=== PATIENT | male | born 1980 | race Caucasian/White ===

== ENCOUNTER 2018-11-28 08:17 | Emergency (ER) | payer OTHER ==
[2018-11-28 08:26] VITALS: RESP 18
--- NOTE | 2018-11-28 08:37 | ED ---
URI HPI - General Chief Complaint: Upper Respiratory Infection Stated Complaint: running fever, flu Time Seen by Provider: 11/28/18 08:30 Source: patient, RN notes reviewed Mode of arrival: ambulatory Limitations: no limitations - History of Present Illness Initial Comments: 37-year-old male presents emergency Department chief complaint fever cough bodyaches. Patient states symptoms started on Wednesday. I did initially start with a sore throat which has resolved. States she's been taken Tylenol and Motrin. Denies any sick contacts denies any significant past medical history NO KNOWN DRUG ALLERGIES. Denies any nausea vomiting diarrhea constipation. Denies any current ear pain does admit to a productive cough. - Related Data Home Medications Medication Instructions Recorded Confirmed Acetaminophen Tab [Tylenol Tab] 650 mg PO Q4H PRN 11/28/18 11/28/18 Ibuprofen [Motrin] 800 mg PO Q6H PRN 11/28/18 11/28/18 Previous Rx's Medication Instructions Recorded Azithromycin [Zithromax Z-pack] 0 mg PO DIRECTED #1 pack 11/28/18 Allergies Allergy/AdvReac Type Severity Reaction Status Date / Time No Known Allergies Allergy Verified 11/28/18 08:40 Review of Systems ROS Statement: Those systems with pertinent positive or pertinent negative responses have been documented in the HPI. ROS Other: All systems not noted in ROS Statement are negative. Past Medical History Past Medical History: No Reported History History of Any Multi-Drug Resistant Organisms: None Reported Past Surgical History: Appendectomy Past Psychological History: No Psychological Hx Reported Smoking Status: Current every day smoker Past Alcohol Use History: None Reported Past Drug Use History: None Reported General Exam Limitations: no limitations General appearance: alert, in no apparent distress Head exam: Present: atraumatic, normocephalic, normal inspection Eye exam: Present: normal appearance, PERRL, EOMI. Absent: scleral icterus, conjunctival injection, periorbital swelling ENT exam: Present: normal exam, normal oropharynx, mucous membranes moist, TM's normal bilaterally Neck exam: Present: normal inspection, full ROM. Absent: tenderness, meningismus, lymphadenopathy Respiratory exam: Present: normal lung sounds bilaterally. Absent: respiratory distress, wheezes, rales, rhonchi, stridor Cardiovascular Exam: Present: regular rate, normal rhythm, normal heart sounds. Absent: systolic murmur, diastolic murmur, rubs, gallop, clicks Course Vital Signs 11/28/18 08:24 Temperature 98.7 F Pulse Rate 89 Respiratory 18 Rate Blood Pressure 117/65 O2 Sat by Pulse 95 Oximetry Medical Decision Making - Medical Decision Making 37-year-old male presented for cough congestion chest x-ray influence unremarkable. Patient will be discharged on zpak - Lab Data Lab Results 11/28/18 Range/Units 08:48 Influenza Type A RNA Not Detected (Not Detectd) Influenza Type B (PCR) Not Detected (Not Detectd) - Radiology Data Radiology results: report reviewed, image reviewed X-ray unremarkable Disposition Clinical Impression: Bronchitis Disposition: HOME SELF-CARE Condition: Stable Instructions (If sedation given, give patient instructions): Upper Respiratory Infection (ED) Additional Instructions: Please return to the Emergency Department if symptoms worsen or any other concerns. Prescriptions: Azithromycin [Zithromax Z-pack] 0 mg PO DIRECTED #1 pack Is patient prescribed a controlled substance at d/c from ED?: No Referrals: None,Stated [Primary Care Provider] - 1-2 days Time of Disposition: 10:09
--- NOTE | 2018-11-28 09:02 | XR ---
EXAMINATION TYPE: XR chest 2V DATE OF EXAM: 11/28/2018 COMPARISON: NONE HISTORY: Cough congestion and weakness. TECHNIQUE: Frontal and lateral views of the chest are obtained. FINDINGS: There is no focal air space opacity, pleural effusion, or pneumothorax seen. The cardiac silhouette size is within normal limits. The osseous structures are intact. IMPRESSION: No suspicious acute pulmonary process.
[2018-11-28 10:38] VITALS: BP 104/62; PULSE 78; TEMP 97.7
== END 2018-11-28 10:35 | disposition home or self-care (01) ==
LOC: EC 08:17
DX: J40 Bronchitis, not specified as acute or chronic (principal); F17.200 Nicotine dependence, unspecified, uncomplicated
CPT/HCPCS: 71046; 87502; 99283

== ENCOUNTER 2019-04-08 00:07 | Emergency (ER) | payer OTHER ==
--- NOTE | 2019-04-08 00:12 | ED ---
Overdose HPI - General Chief Complaint: Overdose Stated Complaint: Overdose Time Seen by Provider: 04/08/19 00:11 - History of Present Illness Initial Comments: Adams is a previously healthy 38-year-old male with a history of heroin abuse who reports he's been clean for approximately 6 months. Patient states that he is having some relationship issues was feeling upset today he reports that he used some IV heroin for the first time in 6 months patient was then found unresponsive. 911 was called. EMS reports that they arrived on scene to find the patient with decreased respiratory rate, he was cyanotic with oxygen saturat ions in the 50s. Patient was given intranasal Narcan and began to wake up. Upon arrival emergency department patient is awake alert oriented with no acute complaints. He admits to using IV heroin. He denies other he vacations. He denies any intention of harming himself. He expresses regret remorse and embarrassment. - Related Data Home Medications Medication Instructions Recorded Confirmed Acetaminophen Tab [Tylenol Tab] 650 mg PO Q4H PRN 11/28/18 11/28/18 Ibuprofen [Motrin] 800 mg PO Q6H PRN 11/28/18 11/28/18 Previous Rx's Medication Instructions Recorded Azithromycin [Zithromax Z-pack] 0 mg PO DIRECTED #1 pack 11/28/18 Allergies Allergy/AdvReac Type Severity Reaction Status Date / Time No Known Allergies Allergy Verified 04/08/19 00:24 Review of Systems ROS Statement: Those systems with pertinent positive or pertinent negative responses have been documented in the HPI. ROS Other: All systems not noted in ROS Statement are negative. Past Medical History Past Medical History: No Reported History History of Any Multi-Drug Resistant Organisms: None Reported Past Surgical History: Appendectomy Past Psychological History: No Psychological Hx Reported Smoking Status: Current every day smoker Past Alcohol Use History: None Reported Past Drug Use History: None Reported General Exam - General Exam Comments Initial Comments: Physical Exam GENERAL: Patient is well-developed and well-nourished. Patient is nontoxic and well- hydrated and is in no distress. HENT: Normocephalic, Atraumatic. EYES: PERRL, EOMI PULMONARY: Unlabored respirations. No audible rales rhonchi or wheezing was noted. CARDIOVASCULAR: There is a regular rate and rhythm without any murmurs gallops or rubs. ABDOMEN: Soft and nontender with normal bowel sounds. SKIN: Skin is clear with no lesions or rashes and otherwise unremarkable. : Deferred NEUROLOGIC: Patient is alert and oriented x3. Moving all extremities spontaneously MUSCULOSKELETAL: Normal extremities with adequate strength and full range of motion. No lower extremity swelling or edema. No calf tenderness. PSYCHIATRIC: Normal psychiatric evaluation Course Vital Signs 04/08/19 00:09 Temperature 97.8 F Pulse Rate 83 Respiratory 19 Rate Blood Pressure 162/84 O2 Sat by Pulse 95 Oximetry - Reevaluation(s) Reevaluation #1: ambulating around the emergency department in no distress at this time 04/08/19 01:18 Medical Decision Making - Medical Decision Making Patient was seen and evaluated history is obtained from patient and EMS that side patient with an apparent accidental heroin overdose after 6 months of being clean neck slight patient received intranasal Narcan is now awake alert and oriented KG was obtained to assess for any prolonged QT excited EKG obtained at 12:20 AM, rate is 86 rhythm is sinus at normal axis, there are normal intervals, MN 154, QRS 110, QTC is [address] elevations or depressions no evidence of acute ischemia or infarction Patient with some nausea after receiving Narcan, Zofran was given Patient ambulating around the department, drinking water, no signs of sedation or respiratory depression. contacted a friend who will be able to pick him up, patient discharged at 1:45 AM. Disposition Clinical Impression: Accidental heroin overdose Disposition: HOME SELF-CARE Condition: Stable Instructions (If sedation given, give patient instructions): Narcotic Use Disorder (ED) Is patient prescribed a controlled substance at d/c from ED?: No Referrals: None,Stated [Primary Care Provider] - 1-2 days
[2019-04-08 00:24] VITALS: BP 162/84; PULSE 83; RESP 19; TEMP 97.8
== END 2019-04-08 01:33 | disposition home or self-care (01) ==
LOC: EC 00:07
DX: T40.1X1A Poisoning by heroin, accidental (unintentional), initial encounter (principal); R11.0 Nausea; F17.200 Nicotine dependence, unspecified, uncomplicated
CPT/HCPCS: 93005; 99284

== ENCOUNTER 2019-04-10 19:13 | Emergency (ER) | payer OTHER ==
[2019-04-10] MEDS ORDERED: DIPH,PERTUS(ACELL)TETVAC-LF 0.5 ML VIAL IM ONE (20:40)
[2019-04-10] MEDS ORDERED: LIDOCAINE 1% INJ 10MG/ML (20 ML MDV) SQ ONE (20:41)
[2019-04-10] MEDS ORDERED: MORPHINE SULFATE 4 MG/ML SYRINGE IVP STA (20:41)
--- NOTE | 2019-04-10 20:59 | XR ---
EXAMINATION TYPE: XR foot complete LT DATE OF EXAM: 04/10/2019 COMPARISON: NONE HISTORY: 38-year-old male pain after beam fell on foot. TECHNIQUE: 3 views FINDINGS: Nondisplaced transverse fracture second metatarsal midshaft. There is a comminuted, nondisplaced frac ture of the first proximal phalanx. There may be proximal extension into the TMT joint. Marked midfoo t soft tissue swelling. No midfoot malalignment identified. IMPRESSION: 1. Comminuted, nondisplaced fracture of the first metatarsal shaft. There may be fracture extension p roximally to the level of the TMT joint. 2. Nondisplaced transverse fracture mid shaft of the second metatarsal. 3. Pronounced soft tissue swelling.
--- NOTE | 2019-04-10 22:54 | ED ---
Lower Extremity Injury HPI - General Chief Complaint: Extremity Injury, Lower Stated Complaint: foot injury [facility] Time Seen by Provider: 04/10/19 20:25 Source: family Mode of arrival: wheelchair Limitations: no limitations - History of Present Illness Initial Comments: 38-year-old male with history of heroin abuse presenting today for chief complaint of crush injury to the left foot. Patient states he was at work when he dropped a circular cylinder on the left foot he weighed between 100-200 pounds. He states he had a small area of the upper treated he states there is a puncture in the top of his foot. Patient states her significant swelling pain is unable to weight-bear. Patient was transferred to the hospital for evaluation. Patient denies fall trauma to head or neck or any other areas of injury. He denies any ankle pain. She denies any loss of sensation or pallor of the extremity. Patient states he is able to wiggle all 5 toes. Remaining ROS (-). - Related Data Home Medications Medication Instructions Recorded Confirmed Acetaminophen Tab [Tylenol Tab] 650 mg PO Q4H PRN 11/28/18 11/28/18 Ibuprofen [Motrin] 800 mg PO Q6H PRN 11/28/18 11/28/18 Previous Rx's Medication Instructions Recorded Azithromycin [Zithromax Z-pack] 0 mg PO DIRECTED #1 pack 11/28/18 HYDROcodone/APAP 7.5-325MG [[place] 1 tab PO Q6HR PRN 3 Days #12 tab 04/11/19 7.5-325] Allergies Allergy/AdvReac Type Severity Reaction Status Date / Time No Known Allergies Allergy Verified 04/08/19 00:24 Review of Systems ROS Statement: Those systems with pertinent positive or pertinent negative responses have been documented in the HPI. ROS Other: All systems not noted in ROS Statement are negative. Past Medical History Past Medical History: No Reported History History of Any Multi-Drug Resistant Organisms: None Reported Past Surgical History: Appendectomy Past Psychological History: No Psychological Hx Reported Smoking Status: Current every day smoker Past Alcohol Use History: None Reported Past Drug Use History: None Reported General Exam - General Exam Comments Initial Comments: General: The patient is awake and alert, in no distress, and does not appear acutely ill. Eye: Pupils are equal, round and reactive to light, extra-ocular movements are intact. No nystagmus. There is normal conjunctiva bilaterally. No signs of icterus. Ears, nose, mouth and throat: There are moist mucous membranes and no oral lesions. Neck: The neck is supple, there is no tenderness or JVD. Cardiovascular: There is a regular rate and rhythm. No murmur, rub or gallop is appreciated. Respiratory: Lungs are clear to auscultation, respirations are non-labored, breath sounds are equal. No wheezes, stridor, rales, or rhonchi. Musculoskeletal: Normal ROM at the ankles knees hips bilaterally patient is unable to plantar dorsiflex at the left foot secondary to pain however there is no evidence of foot drop. Patient is able to wiggle the digits of the left foot. He is tenderness to plantar aspect of left foot. Patient intact both proximal distal to injury site Neurological: A&O x 3. CN II-XII intact, There are no obvious motor or sensory deficits. Coordination appears grossly intact. Speech is normal. Skin: Skin is warm and dry and no rashes or lesions are noted. Bruising of the plantar aspect of foot. Significant soft tissue swelling of the left dorsal surface. Compartments are compressible. No pain out of proportion. There is a 1 cm puncture of the central area of foot. Bleeding controlled. +2 dorsalis pedis pulses equal person bilaterally E refill 3 seconds bilaterally. Equal. Psychiatric: Cooperative, appropriate mood & affect, normal judgment. Limitations: no limitations Course Vital Signs 04/10/19 20:20 Temperature 98.3 F Pulse Rate 65 Respiratory 18 Rate Blood Pressure 119/73 O2 Sat by Pulse 100 Oximetry - Reevaluation(s) Reevaluation #1: Attending Dr. Foreman spoke with Eliane Kee oil and gas exploration technician vascular surgeon for Dr Quinton victor. We discussed the area of penetrating/blunt trauma, with possibility of dorsalis pedis arterial injury--although suspicion low due to lack of bleeding/color of blood, distal vascular exam. She recommended closure of wound with pressure dressing 04/10/19 23:14 Reevaluation #2: Spoke with Dr. Lyons regarding imaging studies, he recommended posterior mold, CT of foot, NWB instruction, outpatient f/u in office this week. 04/10/19 23:38 Medical Decision Making - Medical Decision Making 38yo male presenting for left foot crush injury of left foot. Compartments compressible puncture present upon dorsal aspect of foot. Vascular was consulted Dr. Kee who spoke with my attending Dr. Foreman who did evaluate patient in person. Vascular was consulted given area of injury, although no overt sign of arterial injury. Pt neurovascularly intact. They recommended closure of superficial wound and a compression dressing. Imaging studies revealed a comminuted non-displaced fracture of the first metatarsal shaft, there appears to be some extension proximally into the TMs T joint. There is nonspecific displaced transverse fracture mid shaft of the second metatarsal. Pronounced soft tissue swelling there is no mid foot malalignment identified. I discussed findings with oncall orthopedic surgeon Dr. Lyons. He recommended CT and outpatient office f/u. Patient CT revealed. Patient placed in posterior mold. Tetanus updated. Patient initiated on keflex for infection ppx given puncture wound. Patient discharge with NWB instruction, orthopedic f/u, f/u in 7 days for suture removal and return parameters as discussed. Patient verbalized the importance of timely f/u. Disposition Clinical Impression: Crush injury of left foot, Puncture wound, Multiple fractures of foot Disposition: HOME SELF-CARE Condition: Good Instructions (If sedation given, give patient instructions): Foot Fracture in Adults (ED) Additional Instructions: Please use medication as discussed. Please follow-up with family doctor in the next 2 days, and orthopedic surgery within next 1-3 days (IMPORTANT). DO NOT WEIGHT BEAR. Please return to emergency room if the symptoms increase or worsen or for any other concerns. Prescriptions: HYDROcodone/APAP 7.5-325MG [[place] 7.5-325] 1 tab PO Q6HR PRN 3 Days #12 tab PRN Reason: Severe Pain Is patient prescribed a controlled substance at d/c from ED?: No Referrals: None,Stated [Primary Care Provider] - 1-2 days Maged Lyons MD [Medical Doctor] - 1-2 days Time of Disposition: 00:05
[2019-04-10] MEDS ORDERED: HYDROmorphone 0.5 MG/0.5 ML SYRINGE IM STA (23:05)
[2019-04-10] MEDS ORDERED: CEPHALEXIN 500MG STARTER PACK 4 CAP BTL PO STA (23:47)
--- NOTE | 2019-04-11 00:04 | CT ---
EXAM: CT Left Lower Extremity Without Intravenous Contrast, Foot CLINICAL HISTORY: : Pain TECHNIQUE: Axial computed tomography images of the left foot without intravenous contrast. CTDI is 4.2 mGy and DLP is 138.8 mGy-cm. This CT exam was performed using one or more of the following dose reduction techniques: automated exposure control, adjustment of the mA and/or kV according to patient size, and/or use of iterative reconstruction technique. COMPARISON: No relevant prior studies available. FINDINGS: Bones/joints: Longitudinal Fracture of the first metatarsal bone which is minimally displaced. This does not extend into the articular surface of approximately or distally. The soft tissue swelling noted. IMPRESSION: Minimally displaced fracture the first metatarsal left foot with no extension into the articular surface
[2019-04-11] MEDS ORDERED: MORPHINE SULFATE 4 MG/ML SYRINGE IM STA (00:09)
[2019-04-11 00:25] VITALS: BP 130/70; PULSE 71; RESP 17; TEMP 98.9
--- NOTE | 2019-04-13 03:58 | CDI ---
Documentation Clarification OP Dear Sulma BRICENO, PAC Please provide complete foot puncture wound repair note. Thank you, Jenni Luna Performance Specialist If you have any questions, please contact Refrigeration Insulator at [phone] [facility]
== END 2019-04-11 00:24 | disposition home or self-care (01) ==
LOC: EC 19:13
DX: S92.315A Nondisplaced fracture of first metatarsal bone, left foot, initial encounter for closed fracture (principal); S92.322A Displaced fracture of second metatarsal bone, left foot, initial encounter for closed fracture; S91.332A Puncture wound without foreign body, left foot, initial encounter; F17.200 Nicotine dependence, unspecified, uncomplicated; Z53.29 Procedure and treatment not carried out because of patient's decision for other reasons; W20.8XXA Other cause of strike by thrown, projected or falling object, initial encounter; Y92.69 Other specified industrial and construction area as the place of occurrence of the external cause; Y99.0 Civilian activity done for income or pay
CPT/HCPCS: 99284; 29515; 12001; 96374; 96372 ×2; 73630; 73700; J2270 ×2; J2001; J1170

== ENCOUNTER 2019-08-03 19:11 | Inpatient (IN) | payer MEDICAID, OTHER ==
[2019-08-03 20:08] LABS: Amphetamine Screen,Urine Not Detected (NotDetected); Barbiturate Screen,Urine Not Detected (NotDetected); Benzodiazepines Screen,Urine Not Detected (NotDetected); Cocaine Screen,Urine Not Detected (NotDetected); Methadone Screen, Urine Not Detected (NotDetected); Opiate Screen,Urine Not Detected (NotDetected); Oxycodone Screen, Urine Not Detected (NotDetected); Phencyclidine Screen,Urine Not Detected (NotDetected); Tricyclic Antidepressant,Urine Not Detected (NotDetected); Urn Cannabinoid Scrn Not Detected (NotDetected)
--- NOTE | 2019-08-03 21:10 | ED ---
Psych HPI - General Chief Complaint: Psychiatric Symptoms Stated Complaint: mental health Time Seen by Provider: 08/03/19 19:42 Source: patient, RN notes reviewed Mode of arrival: ambulatory - History of Present Illness Initial Comments: Is a 38-year-old male history depression who presents today with complaints of feeling depressed he is suicidal without plan. He believes it may be his medications 6 to make it worse is feeling depressed for last 3 weeks that markedly increased over last several days. He states he has a plan to take potassium chloride and injected. He denies any drugs or alcohol he states he is been sober for a period time now. No other current modifying factors MD Complaint: suicidal ideation, feels depressed - Related Data Home Medications Medication Instructions Recorded Confirmed Vivitrol Injection 1 injection IM QMONTH 08/03/19 08/03/19 Allergies Allergy/AdvReac Type Severity Reaction Status Date / Time No Known Allergies Allergy Verified 08/03/19 20:10 Review of Systems ROS Statement: Those systems with pertinent positive or pertinent negative responses have been documented in the HPI. ROS Other: All systems not noted in ROS Statement are negative. Past Medical History Past Medical History: No Reported History History of Any Multi-Drug Resistant Organisms: None Reported Past Surgical History: Appendectomy Past Psychological History: No Psychological Hx Reported Smoking Status: Former smoker Past Alcohol Use History: None Reported Past Drug Use History: Opiates General Exam - General Exam Comments Initial Comments: This is a well-developed well-nourished awake alert oriented 3 male Limitations: no limitations General appearance: alert, anxious Head exam: Present: atraumatic, normocephalic, normal inspection Eye exam: Present: normal appearance, PERRL, EOMI. Absent: scleral icterus, conjunctival injection, periorbital swelling ENT exam: Present: normal exam, mucous membranes moist Neck exam: Present: normal inspection. Absent: tenderness, meningismus, lymphadenopathy Respiratory exam: Present: normal lung sounds bilaterally. Absent: respiratory distress, wheezes, rales, rhonchi, stridor Cardiovascular Exam: Present: regular rate, normal rhythm, normal heart sounds. Absent: systolic murmur, diastolic murmur, rubs, gallop, clicks GI/Abdominal exam: Present: soft, normal bowel sounds. Absent: distended, tenderness, guarding, rebound, rigid Extremities exam: Present: normal inspection, full ROM, normal capillary refill. Absent: tenderness, pedal edema, joint swelling, calf tenderness Back exam: Present: normal inspection Neurological exam: Present: alert, oriented X3, CN II-XII intact Psychiatric exam: Present: depressed, suicidal ideation Skin exam: Present: warm, dry, intact, normal color. Absent: rash Course Vital Signs 08/03/19 19:31 Temperature 97.9 F Pulse Rate 93 Respiratory 20 Rate Blood Pressure 125/73 O2 Sat by Pulse 96 Oximetry Medical Decision Making - Medical Decision Making The patient was evaluated by psychiatric service and will be admitted for inpatient treatment of depression and suicidal ideation. - Lab Data Lab Results 08/03/19 Range/Units 19:52 Urine Opiates Screen Not Detected (NotDetected) Ur Oxycodone Screen Not Detected (NotDetected) Urine Methadone Screen Not Detected (NotDetected) Ur Propoxyphene Screen Not Detected (NotDetected) Ur Barbiturates Screen Not Detected (NotDetected) U Tricyclic Antidepress Not Detected (NotDetected) Ur Phencyclidine Scrn Not Detected (NotDetected) Ur Amphetamines Screen Not Detected (NotDetected) U Methamphetamines Scrn Not Detected (NotDetected) U Benzodiazepines Scrn Not Detected (NotDetected) Urine Cocaine Screen Not Detected (NotDetected) U Marijuana (THC) Screen Not Detected (NotDetected) Disposition Clinical Impression: Depression, Suicidal ideation Disposition: TRANSFER TO PSYCH HOSP/UNIT Condition: Stable Referrals: None,Stated [Primary Care Provider] - 1-2 days
[2019-08-03] MEDS ORDERED: ZIPRASIDONE 20 MG VIAL IM PRN (22:33)
[2019-08-03] MEDS ORDERED: MAG HYDROX/AL HYDROX/SIMETH 30 ML CUP PO PRN (22:33)
[2019-08-03] MEDS ORDERED: MAGNESIUM HYDROXIDE 2,400 MG/10 ML CUP PO PRN (22:33)
[2019-08-03] MEDS ORDERED: ACETAMINOPHEN TAB 325 MG TAB PO PRN (22:33)
--- NOTE | 2019-08-03 23:22 | P.MDCNMH ---
History of Present Illness H&P Date: 08/03/19 Chief Complaint: medical evaluation 38-year-old malesignificant past medical history Patient reports addiction to narcotics and smoking cigarettes however he quit both around a month ago since then he's been feeling very depressed and suicidal today he called helpline due to suicidal thoughts he was planning on crushing potassium pills and injecting it in an attempt of and refill potassium injection. He never tried anything like this before. He denies any history of mental health problems. He reports that addiction runs in his family. At this point he denies any chest pain trouble breathing fevers chills headache nausea vomiting abdominal pain or any GI bleeding denies any focal neurologic deficits Review of Systems Pertinent positives as noted in HPI. All other systems were reviewed and are negative Past Medical History Past Medical History: No Reported History History of Any Multi-Drug Resistant Organisms: None Reported Past Surgical History: Appendectomy Past Psychological History: No Psychological Hx Reported Smoking Status: Former smoker Past Alcohol Use History: None Reported Past Drug Use History: Opiates Medications and Allergies Home Medications Medication Instructions Recorded Confirmed Type Vivitrol Injection 1 injection IM QMONTH 08/03/19 08/03/19 History Allergies Allergy/AdvReac Type Severity Reaction Status Date / Time No Known Allergies Allergy Verified 08/03/19 20:10 Physical Exam Vitals: Vital Signs Temp Pulse Resp BP Pulse Ox 08/03/19 19:31 97.9 F 93 20 125/73 96 Intake and Output 08/03/19 08/03/19 08/04/19 14:59 22:59 06:59 Other: Weight 90.718 kg mConstitutional: No acute distress, conversant, pleasant Eyes: Anicteric sclerae, moist conjunctiva, no lid-lag Pupils equal round reactive to light ENMT: NC/AT Oropharynx clear, no erythema, exudates Neck: Supple, FROM, no masses, or JVD No carotid bruits No thyromegaly Lungs: Clear to auscultation Clear to percussion Normal respiratory effort, no accessory muscle use Cardiovascular: Heart regular in rate and rhythm, No murmurs, gallops, or rubs No peripheral edema Abdominal: Soft Nontender, no guarding, rebound or rigidity Abdomen moving with respiration Normoactive bowel sounds No hepatomegaly, No splenomegaly No palpable mass No abdominal wall hernia noted Skin: Normal temperature, tone, texture, turgor No induration No subcutaneous nodules No rash, lesions No ulcers Extremities: No digital cyanosis No clubbing Pedal pulses intact and symmetrical Radial pulses intact and symmetrical No calf tenderness Psychiatric: Alert and oriented to person, place and time depressede affect poor judgement Neuro Muscles Strength 5/5 in all 4 extremities Sensation to light touch grossly present throughout Cranial nerves II-XII grossly intact No focal sensory deficits Lymphatics: no palpable cervical or supraclavicular , or inguinal lymph nodes Cranial Nerve Examination - Cranial Nerves Cranial Nerve II- Optic: Intact Cranial Nerve III- Oculomotor: Intact Cranial Nerve IV- Trochlear: Intact Cranial Nerve V- Trigeminal: Intact Cranial Nerve - Abducens: Intact Cranial Nerve VII- Facial: Intact Cranial Nerve VIII- Auditory: Intact Cranial Nerve IX- Glossopharyngeal: Intact Cranial Nerve X- Vagus: Intact Cranial Nerve XI- Accessory: Intact Cranial Nerve XII- Hypoglossal: Intact Assessment and Plan Assessment: 38-year-old malewith a past medical history presented due to depression and suicidal ideation medicine consulted for medical management currently denies any active medical issues Plan: depression and suicidal ideation Management per psych Recently quit tobacco smoking in narcotics Patient counseled to quit drug of abuse Low risk for DVT patient ambulatory Follow-up labs Thank you for allowing us to participate in the care of this patient. We will follow peripherally. Do not hesitate to contact us with questions. Someone can be reached from the [facility] hospitalist group at all hours of the day at [phone].
[2019-08-04 08:55] LABS: Basophils % (A) 1 %; Eosinophils # (A) 0.1 k/uL (0-0.7); Eosinophils % (A) 2 %; HGB 14.5 gm/dL (13.0-17.5); Lymphocytes # (A) 2.2 k/uL (1.0-4.8); Lymphocytes % (A) 31 %; MCH 30.9 pg (25.0-35.0); MCHC 33.7 g/dL (31.0-37.0); MCV 91.8 fL (80.0-100.0); Mean Platelet Volume 7.8; Monocytes # (A) 0.3 k/uL (0-1.0); Monocytes % (A) 4 %; Neutrophils # (A) 4.4 k/uL (1.3-7.7); Neutrophils % (A) 62 %; Platelet Count 150 k/uL (150-450); RBC 4.68 m/uL (4.30-5.90); RDW 12.6 % (11.5-15.5); WBC 7.2 k/uL (3.8-10.6)
[2019-08-04 09:00] LABS: ALT 75 U/L (21-72); AST 44 U/L (17-59); African American GFR (CKD) >90 (>60 ml/min/1.73 sqM); Albumin 4.5 g/dL (3.5-5.0); Alkaline Phosphatase 71 U/L (38-126); Anion Gap 10 mmol/L; Blood Urea Nitrogen 14 mg/dL (9-20); Calcium 9.6 mg/dL (8.4-10.2); Carbon Dioxide 26 mmol/L (22-30); Chloride 106 mmol/L (98-107); Cholesterol 156 mg/dL (<200); Glucose 85 mg/dL (74-99); HDL Cholesterol 51 mg/dL (40-60); LDL Cholesterol,Calculated 93 mg/dL (0-99); Potassium 4.5 mmol/L (3.5-5.1); Sodium 142 mmol/L (137-145); Total Bilirubin 0.7 mg/dL (0.2-1.3); Total Protein 7.7 g/dL (6.3-8.2); Triglycerides 59 mg/dL (<150)
[2019-08-04] MEDS: SERTRALINE 50 MG TAB PO SCH (14:21)
--- NOTE | 2019-08-04 14:37 | P.HP ---
Psychiatric H&P - . H&P Date: 08/04/19 History & Physical: Allergies Allergy/AdvReac Type Severity Reaction Status Date / Time No Known Allergies Allergy Verified 08/03/19 20:10 Vital Signs Temp 97.9 F 08/04/19 06:22 Pulse 55 L 08/04/19 06:22 Resp 14 08/04/19 06:22 BP 113/53 08/04/19 06:22 Pulse Ox 96 08/03/19 19:31 Intake & Output 08/03/19 08/04/19 08/04/19 18:59 06:59 18:59 Weight 90.718 kg 90.71 kg Laboratory Last Values WBC 7.2 k/uL (3.8-10.6) 08/04/19 07:47 RBC 4.68 m/uL (4.30-5.90) 08/04/19 07:47 Hgb 14.5 gm/dL (13.0-17.5) 08/04/19 07:47 Hct 43.0 % (39.0-53.0) 08/04/19 07:47 MCV 91.8 fL (80.0-100.0) 08/04/19 07:47 MCH 30.9 pg (25.0-35.0) 08/04/19 07:47 MCHC 33.7 g/dL (31.0-37.0) 08/04/19 07:47 RDW 12.6 % (11.5-15.5) 08/04/19 07:47 Plt Count 150 k/uL (150-450) 08/04/19 07:47 Neutrophils % 62 % 08/04/19 07:47 Lymphocytes % 31 % 08/04/19 07:47 Monocytes % 4 % 08/04/19 07:47 Eosinophils % 2 % 08/04/19 07:47 Basophils % 1 % 08/04/19 07:47 Neutrophils # 4.4 k/uL (1.3-7.7) 08/04/19 07:47 Lymphocytes # 2.2 k/uL (1.0-4.8) 08/04/19 07:47 Monocytes # 0.3 k/uL (0-1.0) 08/04/19 07:47 Eosinophils # 0.1 k/uL (0-0.7) 08/04/19 07:47 Basophils # 0.0 k/uL (0-0.2) 08/04/19 07:47 Sodium 142 mmol/L (137-145) 08/04/19 07:47 Potassium 4.5 mmol/L (3.5-5.1) 08/04/19 07:47 Chloride 106 mmol/L (98-107) 08/04/19 07:47 Carbon Dioxide 26 mmol/L (22-30) 08/04/19 07:47 Anion Gap 10 mmol/L 08/04/19 07:47 BUN 14 mg/dL (9-20) 08/04/19 07:47 Creatinine 1.03 mg/dL (0.66-1.25) 08/04/19 07:47 Est GFR (CKD-EPI)AfAm >90 (>60 ml/min/1.73 sqM) 08/04/19 07:47 Est GFR (CKD-EPI)NonAf >90 (>60 ml/min/1.73 sqM) 08/04/19 07:47 Glucose 85 mg/dL (74-99) 08/04/19 07:47 Calcium 9.6 mg/dL (8.4-10.2) 08/04/19 07:47 Total Bilirubin 0.7 mg/dL (0.2-1.3) 08/04/19 07:47 AST 44 U/L (17-59) 08/04/19 07:47 ALT 75 U/L (21-72) H 08/04/19 07:47 Alkaline Phosphatase 71 U/L (38-126) 08/04/19 07:47 Total Protein 7.7 g/dL (6.3-8.2) 08/04/19 07:47 Albumin 4.5 g/dL (3.5-5.0) 08/04/19 07:47 Triglycerides 59 mg/dL (<150) 08/04/19 07:47 Cholesterol 156 mg/dL (<200) 08/04/19 07:47 LDL Cholesterol, Calc 93 mg/dL (0-99) 08/04/19 07:47 HDL Cholesterol 51 mg/dL (40-60) 08/04/19 07:47 TSH 2.270 mIU/L (0.465-4.680) 08/04/19 07:47 Urine Opiates Screen Not Detected (NotDetected) 08/03/19 19:52 Ur Oxycodone Screen Not Detected (NotDetected) 08/03/19 19:52 Urine Methadone Screen Not Detected (NotDetected) 08/03/19 19:52 Ur Propoxyphene Screen Not Detected (NotDetected) 08/03/19 19:52 Ur Barbiturates Screen Not Detected (NotDetected) 08/03/19 19:52 U Tricyclic Antidepress Not Detected (NotDetected) 08/03/19 19:52 Ur Phencyclidine Scrn Not Detected (NotDetected) 10 19:52 Ur Amphetamines Screen Not Detected (NotDetected) 08/03/19 19:52 U Methamphetamines Scrn Not Detected (NotDetected) 08/03/19 19:52 U Benzodiazepines Scrn Not Detected (NotDetected) 08/03/19 19:52 Urine Cocaine Screen Not Detected (NotDetected) 08/03/19 19:52 U Marijuana (THC) Screen Not Detected (NotDetected) 08/03/19 19:52 08/04/19 14:26 IDENTIFYING DATA: Patient is a 38-year-old male with a history of opiate use disorder currently living in a [facility] [place] is single and has 2 daughters and worked as a personal injury law specialist HPI: Patient presented to the hospital last night with his girlfriend with a c omplaint of increase in his depression, feeling hopeless and isolating himself. Patient also endorsed suicidal ideations with an intent/plan to get potassium chloride in the medicine cabinet to end his life. Patient claims that for the past 3-4 weeks he has been feeling "off" and states that his depression has been progressing. He states that he has a history of mild depression and anxiety however states that in the past month it has been much worse. Patient claims that he believes it is the naltrexone injection which she received about a month ago which is causing this. He admits to having poor energy and feels like he does not want to get out of bed at times. Patient admits to anxiety and poor sleep. Patient also spoke about feeling guilty and having shame as he cheated on his girlfriend last weekend. Patient denies any recreational drug use recently and states that he is 37 days sober. Patient had a negative UDS prior to admission. Patient denies any suicidal or homicidal ideations intent or plan. At this time patient denies any auditory or visual hallucinations. Patient denies any flight of ideas racing thoughts and increased in goal directed behavior. Patient admitted to using heroin on and off for several years using approximately 1 g per day IV and now has been sober for 37 days. Patient claims that he also used to use alcohol however has been sober for several months. Patient denies any other recreational drug use and admits to quitting smoking approximately 3 weeks ago. PAST PSYCHIATRIC HISTORY: Patient states that he has a history of mild depression/anxiety for several years and history of polysubstance abuse including heroin and alcohol. He denies being on any psychiatric medications in the past and denies any outpatient psychiatric follow-up. Patient did state that he was seeing a therapist at [facility] weekly however has stopped. Patient denied any previous suicide attempts and denied any previous psychiatric hospitalizations. PMH:denies ALLERGIES: as per EMR CHEMICAL DEPENDENCY HISTORY: as per HPI FAMILY PSYCHIATRIC/SUBSTANCE USE HISTORY: States that his father is a recovering alcoholic and his 2 grandparents both abused alcohol. SOCIAL HISTORY: He states that he was born and raised in [facility] and recently moved up to the [facility] to be in rehab and sober house. Patient is currently living at [facility] for the past 2 days. Patient is single and has 2 daughters that live with his parents. Patient has an associates degree in business and worked as a personal injury law specialist. MENTAL STATUS EXAM: General Appearance: Patient appears to be stated age is well-built, alert, and cooperative. Behavior: Patient is calmly seated without any agitated behavior. Speech: Patient's speech is fluent and nonpressured. Soft tone Mood/Affect: Patient reports their mood is depressed, affect is congruent and constricted. Suicidality/Homicidality: Patient denies having any suicidal or homicidal ideation intent or plan. Perceptions: Patient denies any auditory or visual hallucinations. Though content/process: There is no evidence of any delusional thought content and thought process is linear and goal-directed. Memory and concentration: AOX3, grossly intact for the purposes of this session. Can spell "WORLD" backwards Judgment and insight: poor/impulsive STRENGTHS/WEAKNESSES: strength is that he is resilient, weaknesses that patient is impulsive and has poor insight. INTELLECT: average IMPRESSIONS: Major depressive disorder Anxiety disorder Opiate use disorder, currently in early remission. PLAN: -Patient is admitted under voluntary status to MHU for stabilization of psychiatric symptoms and safety. Patient signed adult voluntary form and medication consent and is placed in patient's chart. -Medications : Will start patient on Zoloft 50 mg daily for mood/anxiety. We'll also start patient on melatonin 5 mg daily at bedtime for sleep. Vistaril 25 mg every 6 hours when necessary for anxiety. -Geodon PRN for agitation/aggression -Patient was informed of the risks, benefits and side effects of the medication and patient verbally consented to taking the medications. Patient signed med consent form and was placed in chart. -NRT -not needed as patient does not smoke. -SW on board for discharge planning. Patient will likely be discharged back to [facility] when psychiatrically stable.
[2019-08-04 18:04] LABS: Hemoglobin A1C 5.2 % (4.0-6.0)
[2019-08-04] MEDS: MELATONIN 5 MG TABLET PO SCH (21:00)
[2019-08-05] MEDS: SERTRALINE 50 MG TAB PO SCH (07:44)
[2019-08-05 14:48] VITALS: BMI 27.6
[2019-08-05] MEDS: hydrOXYzine PAMOATE 25 MG CAP PO PRN (18:46)
--- NOTE | 2019-08-05 18:49 | P.PN ---
Progress Note - Text Progress Note Date: 08/05/19 IDENTIFICATION DATA: 38-year-old male admitted to MHU with symptoms of depression and suicidal ideations. INTERVAL HISTORY: He reports feeling feeling better than yesterday. He claims to have slept well yesterday and states melatonin might have helped him with sleep. He still reports feeling anxious. He reports good appetite. He reports going to all his assigned groups and is able to stay focused. Reports taking medications as prescribed. No side effects reported. MENTAL STATUS EXAMINATION: 38 year old male. Appears stated age in fair grooming and hygiene. speech and thought process are goal directed. mood is better and affect constricted. denies current auditory hallucinations and visual hallucinations. Denies paranoid ideations. Denies suicidal and homicidal ideations. is alert and oriented x 4. insight and judgement are improving. Assessment Major depressive disorder Anxiety disorder Opiate use disorder, currently in early remission. PLAN: Continue Zoloft 50 mg daily for mood/anxiety. melatonin 5 mg daily at bedtime for sleep. Vistaril 25 mg every 6 hours when necessary for anxiety.
[2019-08-05] MEDS: MELATONIN 5 MG TABLET PO SCH (21:23)
[2019-08-06] MEDS: SERTRALINE 50 MG TAB PO SCH (08:18)
--- NOTE | 2019-08-06 16:42 | P.PN ---
Progress Note - Text Progress Note Date: 08/06/19 IDENTIFICATION DATA: 38-year-old male admitted to MHU with symptoms of depression and suicidal ideations. INTERVAL HISTORY: He reports feeling anxious about every thing and says his medication hasn't helped him WITH ANXIETY. He rates his depression at 6/10, 10 being worst. He reports good sleep and appetite. He reports going to all his groups. He is toelrating his medications well with out any side effects. MENTAL STATUS EXAMINATION: 38 year old male. Appears stated age in fair grooming and hygiene. speech and thought process are goal directed. mood is reported as anxious and affect constricted. denies current auditory hallucinations and visual hallucinations. Denies paranoid ideations. Denies suicidal and homicidal ideations. is alert and oriented x 4. insight and judgement are improving. Assessment Major depressive disorder Anxiety disorder Opiate use disorder, currently in early remission. PLAN: HE CONTINUES TO MEET CRITERIA FOR INPATIENT HOSPITALIZATION Continue Will increase Zoloft 50 mg daily to 75 mg for mood/anxiety. melatonin 5 mg daily at bedtime for sleep. Vistaril 25 mg every 6 hours when necessary for anxiety.
[2019-08-06] MEDS: hydrOXYzine PAMOATE 25 MG CAP PO PRN (16:44)
[2019-08-06] MEDS: MELATONIN 5 MG TABLET PO SCH (21:04)
[2019-08-07] MEDS: hydrOXYzine PAMOATE 25 MG CAP PO PRN ×4 (00:21→21:37)
[2019-08-07] MEDS ORDERED: SERTRALINE 25 MG TAB PO SCH (09:00)
[2019-08-07] MEDS ORDERED: SERTRALINE 25 MG TAB PO STA (09:23)
--- NOTE | 2019-08-07 10:46 | P.PN ---
Progress Note - Text Progress Note Date: 08/07/19 Interval History: Patient was seen monitoring always this morning was agreeable to senior mortgage underwriter in the office. Patient was directable and cooperative during the interview however appear to be anxious and somewhat depressed. The patient states that the medication is helping however he continues to feel anxiety and states that the Vistaril was not helping him. Patient stated that he used to take BuSpar which also did not help him. Patient claims that he is continuing to go to groups and trying to remain positive. Patient also spoke about ongoing stressors with his girlfriend and their relationship. He states that he has fair energy and has been sleeping well with the melatonin. Patient claims of good appetite. At this time patient denies any suicidal or homical ideations, intent or plan. Patient denies any auditory, visual hallucinations and denies any paranoia or delusions. Patient denies any side effects from the medications and has been compliant with meds. Mental Status Exam: General Appearance: Patient appears to be stated age is well-built, alert, and cooperative. Behavior: Patient is calmly seated without any agitated behavior. Speech: Patient's speech is fluent and nonpressured. Soft tone Mood/Affect: Patient reports their mood is depressed, affect is congruent and constricted. Suicidality/Homicidality: Patient denies having any suicidal or homicidal ideation intent or plan. Perceptions: Patient denies any auditory or visual hallucinations. Though content/process: There is no evidence of any delusional thought content and thought process is linear and goal-directed. Memory and concentration: AOX3, grossly intact for the purposes of this session Judgment and insight: poor/impulsive Assessment Major depressive disorder Anxiety disorder Opiate use disorder, currently in early remission. Plan: -Patient continues to meet criteria for inpatient psychiatric admission for symptom stabilization and safety. Patient has signed adult voluntary form and medication consent and was placed in patient's chart. -Medications: Will increase Zoloft to 100 mg daily for mood/anxiety. Continue with melatonin 5 mg nightly for sleep. Continue with Vistaril 25 mg every 6 hours when necessary for anxiety. -When necessary Geodon for agitation/aggression. -NRT -need this patient does not smoke -SW on board for discharge planning. Patient will likely be discharged back to [facility] when psychiatrically stable.
[2019-08-07] MEDS: MELATONIN 5 MG TABLET PO SCH (21:37)
[2019-08-08] MEDS: hydrOXYzine PAMOATE 25 MG CAP PO PRN (08:58)
[2019-08-08] MEDS: SERTRALINE 100 MG TAB PO SCH (08:58)
--- NOTE | 2019-08-08 09:42 | P.PN ---
Progress Note - Text Progress Note Date: 08/08/19 Interval History: Patient was seen in his room this morning was agreeable to speak to process description writer in the office. Patient was directable and cooperative during the interview however appeared to be anxious this morning and states that he feels the Vistaril is not helping him. Patient claims that the Zoloft may be making him feel sleepy during the day at 100 mg dose however states that he would like to remain on this dose at this time. He claims that his mood has been mildly improving. He states that the only reason why she is in [place] is for his girlfriend and claims that his girlfriend and him may not be together therefore wants to move back to [facility]. Patient states that he has a list of sober houses that he would like to call today to make those arrangements. Patient claims that he is continuing to go to groups and trying to remain positive. He states that he has fair energy and has been sleeping well with the melatonin. Patient claims of good appetite. At this time patient denies any suicidal or homical ideations, intent or plan. Patient denies any auditory, visual hallucinations and denies any paranoia or delusions. Patient denies any side effects from the medications and has been compliant with meds. Mental Status Exam: General Appearance: Patient appears to be stated age is well-built, alert, and cooperative. Fair hygiene and grooming. Behavior: Patient is calmly seated without any agitated behavior. Speech: Patient's speech is fluent and nonpressured. Soft tone Mood/Affect: Patient reports their mood is depressed, improving mildly, affect is congruent and constricted. Suicidality/Homicidality: Patient denies having any suicidal or homicidal ideation intent or plan. Perceptions: Patient denies any auditory or visual hallucinations. Though content/process: There is no evidence of any delusional thought content and thought process is linear and goal-directed. Memory and concentration: AOX3, grossly intact for the purposes of this session Judgment and insight: poor/impulsive, improving mildly. Assessment Major depressive disorder Anxiety disorder Opiate use disorder, currently in early remission. Plan: -Patient continues to meet criteria for inpatient psychiatric admission for symptom stabilization and safety. Patient has signed adult voluntary form and medication consent and was placed in patient's chart. -Medications: Will continue with Zoloft to 100 mg daily for mood/anxiety. Continue with melatonin 5 mg nightly for sleep. Will switch Vistaril for Ativan when necessary for anxiety. -When necessary Geodon for agitation/aggression. -NRT - not needed as this patient does not smoke -SW on board for discharge planning. Patient wants to go to a [facility] sob house and will make calls today to arrange for that. Likely discharge 2-3 days.
[2019-08-08] MEDS: LORazepam 1 MG TAB PO PRN ×2 (13:30→20:10)
[2019-08-08] MEDS: MELATONIN 5 MG TABLET PO SCH (20:10)
[2019-08-09] MEDS: LORazepam 1 MG TAB PO PRN ×3 (06:16→21:28)
[2019-08-09 07:19] VITALS: RESP 16
[2019-08-09] MEDS: SERTRALINE 100 MG TAB PO SCH (08:55)
--- NOTE | 2019-08-09 14:09 | P.PN ---
Progress Note - Text Progress Note Date: 08/09/19 Interval History: Patient was seen wandering the hallways and was agreeable to speak to song writer in the office. Patient was directable and cooperative during the interview. Patient appeared to be less anxious today however was excited to tell song writer about his lead on the sober house in [facility]. Patient states that he called [facility] and that they would take him in however he claims that he is put on a wait list after 3 other people. Patient continues to claim that the Zoloft has been a making him feel sleepy during the day and was requesting to have it changed to nighttime dosing. Patient states that he would like to stay on the same dose of the medication and does not want to have it increased. He claims that his mood has been mildly improving. He states that he spoke with one of his friends who claims that she will be willing to have him stay at her house in [place]. Patient claims that he is continuing to go to groups and trying to remain positive. He states that he has ok energy and has been sleeping well with the melatonin. Patient claims of good appetite. At this time patient denies any suicidal or homical ideations, intent or plan. Patient denies any auditory, visual hallucinations and denies any paranoia or delusions. Patient denies any side effects from the medications and has been compliant with meds. Mental Status Exam: General Appearance: Patient appears to be stated age is well-built, alert, and cooperative. Fair hygiene and grooming. Behavior: Patient is calmly seated without any agitated behavior. Speech: Patient's speech is fluent and nonpressured. Mood/Affect: Patient reports their mood is improving mildly, affect is congruent and constricted. Suicidality/Homicidality: Patient denies having any suicidal or homicidal ideation intent or plan. Perceptions: Patient denies any auditory or visual hallucinations. Though content/process: There is no evidence of any delusional thought content and thought process is linear and goal-directed. Memory and concentration: AOX3, grossly intact for the purposes of this session Judgment and insight: Fair improving mildly. Assessment Major depressive disorder Anxiety disorder Opiate use disorder, currently in early remission. Plan: -Patient continues to meet criteria for inpatient psychiatric admission for symptom stabilization and safety. Patient has signed adult voluntary form and medication consent and was placed in patient's chart. -Medications: Will continue with Zoloft to 100 mg daily for mood/anxiety. Continue with melatonin 5 mg nightly for sleep. Continue with Ativan when necessary for anxiety. -When necessary [place]on for agitation/aggression. -NRT - not needed as this patient does not smoke -SW on board for discharge planning. Patient states that he is on the wait list to get into [facility] in [facility]. Patient is willing to be discharged to his friend's house and have her pick him up tomorrow.
[2019-08-09] MEDS ORDERED: SERTRALINE 100 MG TAB PO SCH (21:00)
[2019-08-09] MEDS: MELATONIN 5 MG TABLET PO SCH (21:28)
[2019-08-10 06:41] VITALS: BP 149/80; PULSE 80; TEMP 98.6
[2019-08-10] MEDS: LORazepam 1 MG TAB PO PRN (08:42)
--- NOTE | 2019-08-10 09:21 | P.DS ---
Providers Date of admission: 08/03/19 22:08 Expected date of discharge: 08/10/19 Attending physician: Sumanth Varela MD Consults: 08/03/19 22:33 Consult Physician Routine Consulting Provider: Shauna Physician Consult Reason/Comments: H & P and medical care Do you want consulting provider notified?: Yes Primary care physician: Stated None - Discharge Diagnosis(es) (1) Major depressive disorder without psychotic features Current Visit: Yes Status: Acute Priority: High (2) Anxiety disorder Current Visit: Yes Status: Acute Priority: Medium (3) Opioid use disorder, moderate, in early remission, dependence Current Visit: Yes Status: Acute Priority: Low Hospital Course: Admission HPI: Patient is a 38-year-old male with a history of opiate use disorder currently living in a three-quarter house [place] is single and has 2 daughters and worked as a personal lines insurance advisor. Patient presented to the hospital last night with his girlfriend with a complaint of increase in his depression, feeling hopeless and isolating himself. Patient also endorsed suicidal betty ations with an intent/plan to get potassium chloride in the medicine cabinet to end his life. Patient claims that for the past 3-4 weeks he has been feeling "off" and states that his depression has been progressing. He states that he has a history of mild depression and anxiety however states that in the past month it has been much worse. Patient claims that he believes it is the naltrexone injection which she received about a month ago which is causing this. He admits to having poor energy and feels like he does not want to get out of bed at times. Patient admits to anxiety and poor sleep. Patient also spoke about feeling guilty and having shame as he cheated on his girlfriend last weekend. Patient denies any recreational drug use recently and states that he is 37 days sober. Patient had a negative UDS prior to admission. Patient denies any suicidal or homicidal ideations intent or plan. At this time patient denies any auditory or visual hallucinations. Patient denies any flight of ideas racing thoughts and increased in goal directed behavior. Patient admitted to using heroin on and off for several years using approximately 1 g per day IV and now has been sober for 37 days. Patient claims that he also used to use alcohol however has been sober for several months. Patient denies any other recreational drug use and admits to quitting smoking approximately 3 weeks ago. Hospital course: Upon admission to the unit patient was initially depressed and anxious and suicidal. Patient was however directable and agreeable to commence treatment. Patient got along well with other patients on the unit and followed unit protocol. Patient was compliant with the medications and denied any side effects throughout hospital course. Patient was started on Zoloft and titrated up to 100 mg nightly for mood/anxiety. Patient was also started on melatonin 5 mg nightly for sleep. Patient was tried on Vistaril for anxiety however states that it was not helping him and was switched onto Ativan when necessary for anxiety. Patient spoke of his stressors and engaged in therapy both group and individual. Patient was also seen by medical team for history and physical exam. Throughout the course of the hospitalization patient gradually improved with regards to mood, anxiety, suicidal thoughts, sleep and became future oriented with improved insight and judgment. On the day of discharge patient denied any suicidal or homicidal ideations intent or plan denied any auditory or visual hallucinations. Patient endorsed wanting to live for his health and family. The patient denied any access to guns or weapons. Patient denied any paranoia and did not endorse any delusions. Patient does have a significant history of substance abuse and was counseled on abstaining from all substances including alcohol and marijuana. Patient wanted to continue living at a sober house and was put on a wait list at [facility] in [facility]. Patient was also counseled on the medications and need for regular compliance and was encouraged to follow-up with their outpatient appointment for mental health and also for primary care. Prior to discharge a family meeting will be arranged by licensed social worker to answer any questions and ensure safety upon discharge. Mental status exam: General Appearance: Patient appears to be stated age is well-built, alert, pleasant, and cooperative. Patient is in no acute distress and has fair hygiene and grooming Behavior: Patient is calmly seated without any agitated behavior. Speech: Patient's speech is fluent and nonpressured. Mood/Affect: Patient reports their mood is "better", affect is congruent and euthymic. Suicidality/Homicidality: Patient denies having any suicidal or homicidal ideation intent or plan. Perceptions: Patient denies any auditory or visual hallucinations. Though content/process: There is no evidence of any delusional thought content and thought process is linear and goal-directed. Memory and concentration: AOX3, grossly intact for the purposes of this session. Can spell "WORLD" backwards correctly. Judgment and insight: fair, improved Impression: Major depressive disorder without psychotic features Anxiety disorder Opiate use disorder, moderate in early remission Plan: -Continue with discharge today as patient has improved and stabilized psychiatrically and is not currently an imminent threat to himself and/or others. -Continue medications: Patient to be continued on Zoloft 100 mg nightly for mood/anxiety, melatonin 5 mg nightly for sleep, Ativan 1 mg daily when necessary for anxiety. -Patient was counseled on the need for medication compliance and appropriate follow-up at mental health and also primary care for medical issues. Patient verbalized understanding and agreed. -Social work to arrange for and conduct family meeting to ensure safety upon discharge and answer any questions/concerns. Social work also to arrange for patients follow up appointments for psychiatric care follow-up along with follow up with primary care provider. mend worker assisted patient with calling [facility] which is a sober house in [facility] and claims that he is currently on a wait list. Patient to be discharged to his friend's house waiting for bed opening at [facility]. -Patient counseled on abstaining from recreational drugs and marijuana and alcohol. Was informed/educated on the adverse effects on their physical and mental health. Patient verbally agreed and understood -Patient was instructed to return to the hospital or seek immediate medical care if their psychiatric or medical symptoms do worsen or reoccur. Allergies Allergy/AdvReac Type Severity Reaction Status Date / Time No Known Allergies Allergy Verified 08/05/19 14:48 Laboratory Results WBC 7.2 k/uL (3.8-10.6) 08/04/19 07:47 RBC 4.68 m/uL (4.30-5.90) 08/04/19 07:47 Hgb 14.5 gm/dL (13.0-17.5) 08/04/19 07:47 Hct 43.0 % (39.0-53.0) 08/04/19 07:47 MCV 91.8 fL (80.0-100.0) 08/04/19 07:47 MCH 30.9 pg (25.0-35.0) 08/04/19 07:47 MCHC 33.7 g/dL (31.0-37.0) 08/04/19 07:47 RDW 12.6 % (11.5-15.5) 08/04/19 07:47 Plt Count 150 k/uL (150-450) 08/04/19 07:47 Neutrophils % 62 % 08/04/19 07:47 Lymphocytes % 31 % 08/04/19 07:47 Monocytes % 4 % 08/04/19 07:47 Eosinophils % 2 % 08/04/19 07:47 Basophils % 1 % 08/04/19 07:47 Neutrophils # 4.4 k/uL (1.3-7.7) 08/04/19 07:47 Lymphocytes # 2.2 k/uL (1.0-4.8) 08/04/19 07:47 Monocytes # 0.3 k/uL (0-1.0) 08/04/19 07:47 Eosinophils # 0.1 k/uL (0-0.7) 08/04/19 07:47 Basophils # 0.0 k/uL (0-0.2) 08/04/19 07:47 Sodium 142 mmol/L (137-145) 08/04/19 07:47 Potassium 4.5 mmol/L (3.5-5.1) 08/04/19 07:47 Chloride 106 mmol/L (98-107) 08/04/19 07:47 Carbon Dioxide 26 mmol/L (22-30) 08/04/19 07:47 Anion Gap 10 mmol/L 08/04/19 07:47 BUN 14 mg/dL (9-20) 08/04/19 07:47 Creatinine 1.03 mg/dL (0.66-1.25) 08/04/19 07:47 Est GFR (CKD-EPI)AfAm >90 (>60 ml/min/1.73 sqM) 08/04/19 07:47 Est GFR (CKD-EPI)NonAf >90 (>60 ml/min/1.73 sqM) 08/04/19 07:47 Glucose 85 mg/dL (74-99) 08/04/19 07:[address] Glu mg/dL 103 08/04/19 07:47 Hemoglobin A1c 5.2 % (4.0-6.0) 08/04/19 07:47 Calcium 9.6 mg/dL (8.4-10.2) 08/04/19 07:47 Total Bilirubin 0.7 mg/dL (0.2-1.3) 08/04/19 07:47 AST 44 U/L (17-59) 08/04/19 07:47 ALT 75 U/L (21-72) H 08/04/19 07:47 Alkaline Phosphatase 71 U/L (38-126) 08/04/19 07:47 Total Protein 7.7 g/dL (6.3-8.2) 08/04/19 07:47 Albumin 4.5 g/dL (3.5-5.0) 08/04/19 07:47 Triglycerides 59 mg/dL (<150) 08/04/19 07:47 Cholesterol 156 mg/dL (<200) 08/04/19 07:47 LDL Cholesterol, Calc 93 mg/dL (0-99) 08/04/19 07:47 HDL Cholesterol 51 mg/dL (40-60) 08/04/19 07:47 TSH 2.270 mIU/L (0.465-4.680) 08/04/19 07:47 Urine Opiates Screen Not Detected (NotDetected) 08/03/19 19:52 Ur Oxycodone Screen Not Detected (NotDetected) 08/03/19 19:52 Urine Methadone Screen Not Detected (NotDetected) 08/03/19 19:52 Ur Propoxyphene Screen Not Detected (NotDetected) 08/03/19 19:52 Ur Barbiturates Screen Not Detected (NotDetected) 08/03/19 19:52 U Tricyclic Antidepress Not Detected (NotDetected) 08/03/19 19:52 Ur Phencyclidine Scrn Not Detected (NotDetected) 08/03/19 19:52 Ur Amphetamines Screen Not Detected (NotDetected) 08/03/19 19:52 U Methamphetamines Scrn Not Detected (NotDetected) 08/03/19 19:52 U Benzodiazepines Scrn Not Detected (NotDetected) 08/03/19 19:52 Urine Cocaine Screen Not Detected (NotDetected) 08/03/19 19:52 U Marijuana (THC) Screen Not Detected (NotDetected) 08/03/19 19:52 Vital Signs Temp 98.6 F 08/10/19 06:24 Pulse 80 08/10/19 06:24 Resp 16 08/10/19 06:24 BP 149/80 08/10/19 06:24 Pulse Ox 96 08/03/19 19:31 Patient Condition at Discharge: Stable Plan - Discharge Summary Discharge Rx Participant: No New Discharge Prescriptions: New LORazepam [Ativan] 1 mg PO DAILY PRN #10 tab PRN Reason: Anxiety Melatonin 5 mg PO HS #28 tablet Sertraline [Zoloft] 100 mg PO HS 28 Days tab Continue Vivitrol Injection 1 injection IM QMONTH Discharge Medication List Vivitrol Injection 1 injection IM QMONTH 08/03/19 [History] LORazepam [Ativan] 1 mg PO DAILY PRN #10 tab 08/10/19 [Rx] Melatonin 5 mg PO HS #28 tablet 08/10/19 [Rx] Sertraline [Zoloft] 100 mg PO HS 28 Days tab 08/10/19 [Rx] Follow up Appointment(s)/Referral(s): Prashanth Prajapati [Other] - 08/15/19 11:00 am (Tai) None,Stated [Primary Care Provider] - 1-2 days Patient Instructions/Handouts: Depression (DC), Suicide Prevention (DC) Activity/Diet/Wound Care/Special Instructions: Activity and diet as tolerated. No guns or weapons in the home. Refrain from alcohol and street drugs not prescribed by your physicians. Take all medicati ons as prescribed, and attend all follow up appointments as scheduled. If in need of medication refills, please go to your Primary care physician, or your out patient psychiatric provider. If in crisis, please go to the nearest ER for an evaluation, or call . Discharge Disposition: HOME SELF-CARE
[2019-08-10] MEDS ORDERED: SERTRALINE 100 MG TAB PO SCH (21:00)
== END 2019-08-10 13:01 | disposition home or self-care (01) | DRG 881 ==
LOC: EC 19:11 → 3MHU 22:08
PROVIDERS: ADMIT Psychiatry & Neurology Psychiatry; ATTEND Psychiatry & Neurology Psychiatry
DX: F32.9 Major depressive disorder, single episode, unspecified (principal); R45.851 Suicidal ideations; F41.9 Anxiety disorder, unspecified; Z79.899 Other long term (current) drug therapy; Z87.891 Personal history of nicotine dependence; F11.21 Opioid dependence, in remission
CPT/HCPCS: 80053; 80061; 80306; 82075; 83036; 84443; 85025; 99285

== ENCOUNTER 2019-08-26 13:50 | Inpatient (IN) | payer MEDICAID, OTHER ==
--- NOTE | 2019-08-26 14:37 | ED ---
General Adult HPI - General Chief complaint: Psychiatric Symptoms Stated complaint: Mental Health Time Seen by Provider: 08/26/19 14:04 Source: patient, RN notes reviewed Mode of arrival: ambulatory Limitations: no limitations - History of Present Illness Initial comments: 38-year-old male with a past medical history of depression presents to the emergency department for chief, and suicidal ideation. Patient states this started a few days ago. Patient states that he relapsed on alcohol and heroin a few days ago. States he last used these last night. States he thinks this is what is making him suicidal. Patient has a plan to hang himself in the garage. Patient was recently admitted to mental health floor several weeks ago.Patient has no other complaints at this time including shortness of breath, chest pain, abdominal pain, nausea or vomiting, headache, or visual changes. - Related Data Home Medications Medication Instructions Recorded Confirmed Vivitrol Injection 1 injection IM QMONTH 08/03/19 08/05/19 Previous Rx's Medication Instructions Recorded LORazepam [Ativan] 1 mg PO DAILY PRN #10 tab 08/10/19 Melatonin 5 mg PO HS #28 tablet 08/10/19 Sertraline [Zoloft] 100 mg PO HS 28 Days tab 08/10/19 Allergies Allergy/AdvReac Type Severity Reaction Status Date / Time No Known Allergies Allergy Verified 08/26/19 13:57 Review of Systems ROS Statement: Those systems with pertinent positive or pertinent negative responses have been documented in the HPI. ROS Other: All systems not noted in ROS Statement are negative. Past Medical History Past Medical History: No Reported History History of Any Multi-Drug Resistant Organisms: None Reported Past Surgical History: Appendectomy Past Psychological History: No Psychological Hx Reported Smoking Status: Current every day smoker Past Alcohol Use History: Daily Past Drug Use History: Heroin General Exam Limitations: no limitations General appearance: alert, in no apparent distress Head exam: Present: atraumatic, normocephalic, normal inspection Eye exam: Present: normal appearance, PERRL, EOMI. Absent: scleral icterus, conjunctival injection, periorbital swelling ENT exam: Present: normal exam, mucous membranes moist Neck exam: Present: normal inspection, full ROM. Absent: tenderness, meningismus, lymphadenopathy Respiratory exam: Present: normal lung sounds bilaterally. Absent: respiratory distress, wheezes, rales, rhonchi, stridor Cardiovascular Exam: Present: regular rate, normal rhythm, normal heart sounds. Absent: systolic murmur, diastolic murmur, rubs, gallop, clicks GI/Abdominal exam: Present: soft, normal bowel sounds. Absent: distended, tenderness, guarding, rebound, rigid Psychiatric exam: Present: suicidal ideation Course Vital Signs 08/26/19 13:51 Temperature 98.2 F Pulse Rate 104 H Respiratory 18 Rate Blood Pressure 125/71 O2 Sat by Pulse 98 Oximetry Medical Decision Making - Medical Decision Making Pt was evaluated by EPS nurse. In conjunction with the psychiatrist, decision was made to admit patient for further psychiatric evaluation. Disposition Clinical Impression: Suicidal ideation Disposition: TRANSFER TO PSYCH HOSP/UNIT Condition: Fair Is patient prescribed a controlled substance at d/c from ED?: No Referrals: None,Stated [Primary Care Provider] - 1-2 days Time of Disposition: 16:38
[2019-08-26] MEDS ORDERED: ACETAMINOPHEN TAB 325 MG TAB PO PRN (16:54)
[2019-08-26] MEDS ORDERED: MAG HYDROX/AL HYDROX/SIMETH 30 ML CUP PO PRN (16:54)
[2019-08-26] MEDS: SERTRALINE 100 MG TAB PO SCH (21:30)
[2019-08-26 21:44] VITALS: BMI 28.7
[2019-08-27] MEDS: SERTRALINE 100 MG TAB PO SCH ×2 (02:04→20:42)
[2019-08-27] MEDS: NICOTINE 14MG/24HR PATCH TRANSDERM SCH (09:17)
[2019-08-27] MEDS: LORazepam 1 MG TAB PO PRN ×3 (11:06→23:06)
--- NOTE | 2019-08-27 12:04 | P.HPMEDMHU ---
History of Present Illness H&P Date: 08/27/19 Chief Complaint: Consult for him HU HPI The patient is a 38 year old male with a past history of major depression, anxiety disorder who presents to the ER with suicidal ideation. Apparently the patient was recently discharged from psychiatry unit on the third floor on . Since discharge patient reports compliance with his Zoloft but also states has been using excessive amounts of alcohol and has been doing heroin Almost daily. Reports to recently using last evening, reports of plan of either hang himself in his garage or overdosing on his medications. The patient denies any chest pain or shortness of breath or abdominal pain, he does report feeling anxious and has some nausea. UDS was performed in the ER and was negative Review of Systems Pertinent positives per HPI, all other review of system otherwise negative Past Medical History Past Medical History: No Reported History History of Any Multi-Drug Resistant Organisms: None Reported Past Surgical History: Appendectomy Smoking Status: Current every day smoker Medications and Allergies Home Medications Medication Instructions Recorded Confirmed Type Vivitrol Injection 1 injection IM QMONTH 08/03/19 08/05/19 History LORazepam [Ativan] 1 mg PO DAILY PRN #10 tab 08/10/19 Rx Melatonin 5 mg PO HS #28 tablet 08/10/19 Rx Sertraline [Zoloft] 100 mg PO HS 28 Days tab 08/10/19 Rx Allergies Allergy/AdvReac Type Severity Reaction Status Date / Time No Known Allergies Allergy Verified 08/26/19 13:57 Physical Exam Vitals: Vital Signs Temp Pulse Pulse Pulse Pulse Resp BP 08/27/19 11:08 76 20 08/27/19 06:10 98.7 F 64 15 08/26/19 18:43 97.9 F 73 16 08/26/19 16:58 98.2 F 104 H 18 125/71 08/26/19 13:51 98.2 F 104 H 18 125/71 BP BP Pulse Ox 08/27/19 11:08 129/79 08/27/19 06:10 100/54 08/26/19 18:43 123/62 97 08/26/19 16:58 98 08/26/19 13:51 98 Intake and Output 08/26/19 08/27/19 08/27/19 22:59 06:59 14:59 Other: Weight 93.485 kg Constitutional: No acute distress, conversant, pleasant Eyes: Anicteric sclerae, moist conjunctiva, no lid-lag, PERRLA ENMT: NC/AT,Oropharynx clear, no erythema, exudates Neck:Supple, FROM, no masses, or JVD, No carotid bruits; No thyromegaly Lungs: Clear to auscultation, Clear to percussion, Normal respiratory effort, no accessory muscle use Cardiovascular: Heart regular in rate and rhythm, No murmurs, gallops, or rubs no peripheral edema Abdominal: Soft Nontender, nom distended, no guarding, no rebound or rigidity, Normoactive bowel sounds No hepatomegaly, No splenomegaly, No palpable mass No abdominal wall hernia noted Skin: Normal temperature, tone, texture, turgor, No induration No subcutaneous nodules, No rash, lesions, No ulcers Extremities:No digital cyanosis No clubbing, Pedal pulses intact and symmetrical Radial pulses intact and symmetrical Normal gait and station, No calf tenderness Psychiatric: Alert and oriented to person, place and time, flat affect appears anxious denies any auditory or visual hallucinations Neuro: Muscles Strength 5/5 in all 4 extremities, Sensation to light touch gr ossly present throughout, Cranial nerves II-XII grossly intact. No focal sensory deficits Cranial Nerve Examination - Cranial Nerves Cranial Nerve II- Optic: Intact Cranial Nerve III- Oculomotor: Intact Cranial Nerve IV- Trochlear: Intact Cranial Nerve V- Trigeminal: Intact Cranial Nerve - Abducens: Intact Cranial Nerve VII- Facial: Intact Cranial Nerve VIII- Auditory: Intact Cranial Nerve IX- Glossopharyngeal: Intact Cranial Nerve X- Vagus: Intact Cranial Nerve XI- Accessory: Intact Cranial Nerve XII- Hypoglossal: Intact Thrombosis Risk Factor Assmnt - Choose All That Apply Any of the Below Risk Factors Present?: No Other Risk Factors: No Other congenital or acquired thrombophilia - If yes, enter type in comment: No Thrombosis Risk Factor Assessment Level: Very Low Risk Assessment and Plan Assessment: Suicidal ideation Major depression Anxiety disorder History of heroin use Plan: Patient admitted to the acute inpatient psychiatry team will defer to primary psychiatrist for treatment ongoing suicidal ideation and major depression with psychotropic and cognitive behavioral therapies, patient reports use of heroin but has a negative UDS. Ativan as already prescribed, we'll add Zofran as needed for nausea. The patient is hemodynamically stable, hence we'll plan to sign off as his labs are largely unremarkable For further questions please not hesitate to contact us on inpatient team. WE Appreciate opportunity to be involved in the patient's ongoing care
[2019-08-27] MEDS ORDERED: ONDANSETRON ODT 4 MG TAB PO PRN (14:23)
[2019-08-27] MEDS ORDERED: LOPERAMIDE 2 MG CAP PO STA (15:09)
--- NOTE | 2019-08-27 15:18 | P.HP ---
Psychiatric H&P - . H&P Date: 08/27/19 History & Physical: Allergies Allergy/AdvReac Type Severity Reaction Status Date / Time No Known Allergies Allergy Verified 08/26/19 13:57 Vital Signs Temp 98.7 F 08/27/19 06:10 Pulse 88 08/27/19 14:24 Resp 20 08/27/19 14:24 BP 125/65 08/27/19 14:24 Pulse Ox 97 08/26/19 18:43 Intake & Output 08/26/19 08/27/19 08/27/19 18:59 06:59 18:59 Weight 93.485 kg 93.48 kg 08/27/19 15:12 IDENTIFYING DATA: 38 year old single male patient HPI: Patient admitted to the inpatient psychiatric unit [facility] on involuntary basis with depression and thoughts of suicide. Patient states that he started feeling suicidal a few days ago. He came into the hospital on his own. He relays that somebody called him and he told him how he was feeling and they told him back to the hospital. He states he was having thoughts of wanting to hang himself from the garage. He admits that his mood is been depressed daily for months. Had a recent hospitalization here couple of weeks ago and was feeling better but then he seemed to go down again. He has been consistent with taking of Zoloft. PAST PSYCHIATRIC HISTORY: One prior admission here approximately a few weeks ago. He has never had any actual suicide attempts. He most recently has been on Zoloft 100 mg daily which she has been consistent with. No current outpatient treatment. PMH: Denies ALLERGIES: No known ALLERGIES MEDICATIONS: Tylenol when necessary, Maalox when necessary, Ativan when necessary, Habitrol patch, Zofran when necessary, Zoloft CHEMICAL DEPENDENCY HISTORY: Reports that he has been using heroin daily since he left the hospital. He admits to having withdrawal from opioids currently clonidine has helped him in the past. He did drink alcohol 2 nights ago but that's the only time he had alcohol since is been out of the hospital. He drinks alcohol probably a couple times per year. He has been to rehab treatment more than 5 times, he does have some thoughts of going to rehab again. FAMILY PSYCHIATRIC HISTORY: Denies FAMILY CHEMICAL DEPENDENCY HISTORY: None known at this time. SOCIAL HISTORY: He relays that is kind of homeless right now. He most recently been living with a friend prior to coming to the hospital. Is not currently working. 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 He's never been does not have any children. He denies any current relationship. He has 2 sisters and 1 brother. MENTAL STATUS EXAM: He is alert and cooperative with the interview. He does not show any significant agitation. Speech is fluent, not rapid or pressured. Thought processes organized. His mood is described as "anxious, not feeling well." Regarding suicidal ideations he says it's doing better he feels safe here on the unit. He denies any thoughts of harm to others. He denies any hallucinations. He does not make any ricardo delusional statements. Cognitively appears very grossly intact. I do not note any significant memory disturbance or disorientation. IMPRESSIONS: Major depressive disorder, recurrent; opioid use disorder; unspecified anxiety disorder PLAN: Patient is admitted to the inpatient psychiatric unit [facility] on a voluntary basis. He'll be placed on SP 15 minute precautions. Baseline laboratory workup be done the patient and medical consultation will be ordered. We will maintain Zoloft 20 mg daily and continue to monitor for any medication side effects. He will be placed on Catapres when necessary for any opioid withdrawals and Imodium when necessary for any issues with diarrhea. We'll continue to monitor his mood and monitor regarding any suicidal ideations. We'll look into any support systems. He will need to be linked with outpatient treatment. Also continue to discuss the option of inpatient rehab. Estimated length of stay is 3-5 days. Prognosis is guarded.
[2019-08-27] MEDS: LOPERAMIDE 2 MG CAP PO PRN ×2 (15:45→20:41)
[2019-08-27] MEDS: cloNIDine HCL 0.1 MG TAB PO PRN ×2 (15:47→23:06)
[2019-08-28] MEDS: LORazepam 1 MG TAB PO PRN ×2 (08:07→15:05)
[2019-08-28] MEDS: cloNIDine HCL 0.1 MG TAB PO PRN ×3 (10:56→20:58)
[2019-08-28] MEDS: NICOTINE 14MG/24HR PATCH TRANSDERM SCH (10:59)
--- NOTE | 2019-08-28 13:03 | P.PN ---
Progress Note - Text Progress Note Date: 08/28/19 Interval History: Patient was seen lying down in his bed this morning however patient states that he did not want to leave his bed to talk to life underwriter. Patient appeared to be somewhat irritable however was directable during conversation. Patient states that "I'm going through withdrawals and this is one of the alone". He states that his last use of heroin was on Wednesday and states that at this time he is feeling anxious, experiencing some diarrhea and mild pain at times. Patient also claims that he has been taking some of the PRN medications however claims that "you guys won't give me Suboxone". He states that his mood is currently "down" and relates it to his withdrawal. The patient states that his sleep is poor at this time and has poor energy. He denies going to groups. At this time patient denies any suicidal or homical ideations, intent or plan. Patient denies any auditory, visual hallucinations and denies any paranoia or delusions. Patient denies any side effects from the medications and has been compliant with meds. Patient requested to be put on Remeron at night to help with sleep. Mental Status Exam: General Appearance: Patient appears to be stated age is muscular, alert, irritable yet attempts to cooperate. Marginal hygiene and grooming. Behavior: Patient is lying in bed and is irritable at this time. Speech: Patient's speech is fluent and nonpressured. Mood/Affect: Mood is "down" and admits to anxiety, affect is congruent and constricted. Suicidality/Homicidality: Patient denies having any suicidal or homicidal ideation intent or plan. Perceptions: Patient denies any auditory or visual hallucinations. Though content/process: There is no evidence of any delusional thought content and thought process is linear and goal-directed. Memory and concentration: AOX3, grossly intact for the purposes of this session Judgment and insight: Poor Assessment Major depressive disorder, recurrent Opiate use disorder, currently in withdrawal Anxiety disorder unspecified Nicotine dependence Plan: -Patient continues to meet criteria for inpatient psychiatric admission for symptom stabilization and safety. Patient has signed adult voluntary form and medication consent and was placed in patient's chart. -Medications: Continue with Zoloft 100 mg daily for mood/anxiety. Will titrate up once patient is through withdrawals. Added on Remeron 15 mg daily at bedtime for insomnia/mood. PRN medications for opiate withdrawal including clonidine, ibuprofen, loperamide, Zofran. -When necessary Ativan for agitation/anxiety. -NRT - nicotine patch -SW on board for discharge planning.
[2019-08-28] MEDS ORDERED: ZIPRASIDONE 20 MG VIAL IM PRN (13:10)
[2019-08-28] MEDS: hydrOXYzine PAMOATE 25 MG CAP PO PRN (13:14)
[2019-08-28] MEDS: SERTRALINE 100 MG TAB PO SCH (20:19)
[2019-08-28] MEDS ORDERED: MIRTAZAPINE 15 MG TAB PO SCH (21:00)
[2019-08-29] MEDS: LORazepam 1 MG TAB PO PRN ×3 (06:22→20:37)
[2019-08-29] MEDS: hydrOXYzine PAMOATE 25 MG CAP PO PRN ×3 (08:09→20:37)
[2019-08-29] MEDS: cloNIDine HCL 0.1 MG TAB PO PRN ×3 (08:09→15:52)
[2019-08-29] MEDS: NICOTINE 14MG/24HR PATCH TRANSDERM SCH (08:11)
[2019-08-29] MEDS ORDERED: DICYCLOMINE 20 MG TAB PO PRN (10:28)
--- NOTE | 2019-08-29 10:37 | P.PN ---
Progress Note - Text Progress Note Date: 08/29/19 Interval History: Patient was seen lying down in his bed this morning and noted to be tossing and turning in bed and did not want to leave his room and want to speak to scenario writer in the room. Patient was less irritable this morning however continues to complain of anxiety. He states that the Ativan and Catapres are helping however that they are scheduled to be taken at the same time and was requesting to have him at different times. Patient states that his opiate withdrawal is improving uribe rebecca he still finding himself "tossing and turning" overnight. He states that he had mildly improved sleep and was requesting to have his Remeron increased. He states that he has not been going to groups at this time. Patient complained of stomach cramping as well today. Director Of Revenue Cycle Management informed patient of the different PRN medications which are available to him for opiate withdrawal and patient acknowl edged. He states that his mood is currently "bad" and relates it to his withdrawal. At this time patient denies any suicidal or homical ideations, intent or plan. Patient denies any auditory, visual hallucinations and denies any paranoia or delusions. Patient denies any side effects from the medications and has been compliant with meds. When scenario writer spoke to patient about his discharge planning and [facility] appointment tomorrow, patient claims that he wants to reschedule that as he will not be ready to go tomorrow. Mental Status Exam: General Appearance: Patient appears to be stated age is muscular, irritable yet attempts to cooperate. Marginal hygiene and grooming. Behavior: Patient is lying in bed and is tossing and turning. Irritability improving. Speech: Patient's speech is fluent and nonpressured. Mood/Affect: Mood is "bad" and admits to anxiety, affect is congruent and constricted. Suicidality/Homicidality: Patient denies having any suicidal or homicidal ideation intent or plan. Perceptions: Patient denies any auditory or visual hallucinations. Though content/process: There is no evidence of any delusional thought content and thought process is linear and goal-directed. Memory and concentration: AOX3, grossly intact for the purposes of this session Judgment and insight: Poor, mildly improving. Assessment Major depressive disorder, recurrent Opiate use disorder, currently in withdrawal Anxiety disorder unspecified Nicotine dependence Plan: -Patient continues to meet criteria for inpatient psychiatric admission for symptom stabilization and safety. Patient has signed adult voluntary form and medication consent and was placed in patient's chart. -Medications: Continue with Zoloft 100 mg daily for mood/anxiety. Will titrate up once patient is through withdrawals and will be able to tolerate it. Increased Remeron 15 mg daily at bedtime for insomnia/mood. PRN medications for opiate withdrawal including clonidine (changed to q8hr prn dosing), ibuprofen, loperamide, Zofran and added dicyclomine for stomach cramping. -When necessary Ativan for agitation/anxiety. -NRT - nicotine patch -SW on board for discharge planning. Patient has [facility] substance use rehab appointment tomorrow but will likely re-scheudle it.
[2019-08-29] MEDS: IBUPROFEN 600 MG TAB PO PRN (13:32)
[2019-08-29] MEDS: SERTRALINE 100 MG TAB PO SCH (20:37)
[2019-08-29] MEDS: MIRTAZAPINE 15 MG TAB PO SCH (20:40)
[2019-08-30] MEDS: LORazepam 1 MG TAB PO PRN ×3 (07:22→20:16)
[2019-08-30] MEDS: hydrOXYzine PAMOATE 25 MG CAP PO PRN ×2 (07:36→20:16)
[2019-08-30] MEDS: LOPERAMIDE 2 MG CAP PO PRN (07:36)
[2019-08-30] MEDS: IBUPROFEN 600 MG TAB PO PRN (07:36)
[2019-08-30] MEDS: cloNIDine HCL 0.1 MG TAB PO PRN ×2 (08:16→20:16)
--- NOTE | 2019-08-30 12:16 | P.PN ---
Progress Note - Text Progress Note Date: 08/30/19 Interval History: Patient was seen wandering the hallways this morning and appear to have a brig hter affect and was agreeable to speak to narrative writer in the office. Patient states that he is feeling better today and feels that his withdrawal symptoms are improving. He does still complain of anxiety and some diarrhea and stomach cramps. He also states that he did have a difficult time sleeping last night. Patient claims that the PRN medications are helping him get through the withdrawals and he is thankful for them. He states that he is attempting to go to some groups during the day and participate. Patient spoke about wanting to go to a different rehab program upon discharge. He states that his mood is currently "a bit better" at this time. At this time patient denies any suicidal or homical ideations, intent or plan. Patient denies any auditory, visual hallucinations and denies any paranoia or delusions. Patient did endorse having difficulties maintaining errection during sexual intercourse and was concerned about his libido and possible side effect from Zoloft. Patient was agreeable to try Wellbutrin as an adjunct to help with his sexual side effects. Mental Status Exam: General Appearance: Patient appears to be stated age is muscular, less irritable today and attempts to cooperate. Improving hygiene and grooming. Behavior: Patient is lying in bed and is tossing and turning. Irritability improving. Speech: Patient's speech is fluent and nonpressured. Mood/Affect: Mood is "a bit better" and admits to anxiety, affect is congruent and constricted. Suicidality/Homicidality: Patient denies having any suicidal or homicidal ideation intent or plan. Perceptions: Patient denies any auditory or visual hallucinations. Though content/process: There is no evidence of any delusional thought content and thought process is linear and goal-directed. Memory and concentration: AOX3, grossly intact for the purposes of this session Judgment and insight: mildly improving. Assessment Major depressive disorder, recurrent Opiate use disorder, currently in withdrawal Anxiety disorder unspecified Nicotine dependence Plan: -Patient continues to meet criteria for inpatient psychiatric admission for symptom stabilization and safety. Patient has signed adult voluntary form and medication consent and was placed in patient's chart. -Medications: Continue with Zoloft 100 mg daily for mood/anxiety. Continue with Remeron 15 mg daily at bedtime for insomnia/mood. Added on Wellbutrin 100 mg daily as mood adjunct along with treatment of sexual side effects from SSRIs. PRN medications for opiate withdrawal including clonidine (changed to q8hr prn dosing), ibuprofen, loperamide, Zofran and added dicyclomine for stomach cramping. -When necessary Ativan for agitation/anxiety. Patient requested to have Ativan titrated off prior to discharge. -NRT - nicotine patch -SW on board for discharge planning. Unit staff Received a request by police department to surrender patient upon discharge to police custody.
[2019-08-30] MEDS: buPROPion 100 MG TAB PO SCH ×2 (12:56→13:53)
[2019-08-30] MEDS: MIRTAZAPINE 15 MG TAB PO SCH (20:15)
[2019-08-30] MEDS: SERTRALINE 100 MG TAB PO SCH (20:16)
[2019-08-31] MEDS: LORazepam 1 MG TAB PO PRN (06:17)
[2019-08-31] MEDS: hydrOXYzine PAMOATE 25 MG CAP PO PRN ×2 (06:17→20:52)
[2019-08-31] MEDS: cloNIDine HCL 0.1 MG TAB PO PRN ×2 (08:13→20:52)
[2019-08-31] MEDS: buPROPion 100 MG TAB PO SCH ×3 (08:13→11:35)
--- NOTE | 2019-08-31 09:33 | P.PN ---
Progress Note - Text Progress Note Date: 08/31/19 Interval History: Patient was seen laying down in his bed in his room and was agreeable to speak to typewriter mechanic in the office. Patient states that he is feeling mildly improved today and states that his withdrawal symptoms are gradually getting better. Patient states that he has anxiety that he finds difficult to control. He claims that he took 3 Ativan yesterday PRN for anxiety however is now requesting to have a tapered off. He states that he slept "on and off yesterday". He states that he is attempting to go to some groups during the day and participate and finding them helpful. Patient spoke about other options upon discharge for him however is undecided. He states that his mood is currently improving mildly. At this time patient denies any suicidal or homical ideations, intent or plan. Patient denies any auditory, visual hallucinations and denies any paranoia or delusions. He states that the Wellbutrin has helped his mood improve and wants to continue on with it. Mental Status Exam: General Appearance: Patient appears to be stated age is muscular, attempts to cooperate. Improving hygiene and grooming. Behavior: Patient is sitting in chair, no agitation. Speech: Patient's speech is fluent and nonpressured. Mood/Affect: Mood is "better" and admits to anxiety, affect is congruent and constricted. Suicidality/Homicidality: Patient denies having any suicidal or homicidal ideation intent or plan. Perceptions: Patient denies any auditory or visual hallucinations. Though content/process: There is no evidence of any delusional thought content and thought process is linear and goal-directed. Memory and concentration: AOX3, grossly intact for the purposes of this session Judgment and insight: mildly improving. Assessment Major depressive disorder, recurrent Opiate use disorder, currently in withdrawal Anxiety disorder unspecified Nicotine dependence Plan: -Patient continues to meet criteria for inpatient psychiatric admission for symptom stabilization and safety. Patient has signed adult voluntary form and medication consent and was placed in patient's chart. -Medications: Continue with Zoloft 100 mg daily for mood/anxiety. Continue with Remeron 15 mg daily at bedtime for insomnia/mood. Continue with Wellbutrin 100 mg daily as mood adjunct along with treatment of sexual side effects from SSRIs. PRN medications for opiate withdrawal including clonidine (changed to q8hr prn dosing), ibuprofen, loperamide, Zofran and added dicyclomine for stomach cramping. -Patient requested to have Ativan titrated off prior to discharge. Will decrease Ativan to 0.5 mg 3 times a day when necessary for anxiety with the plan to taper off. -NRT - nicotine patch -SW on board for discharge planning. Unit staff Received a request by police department to surrender patient upon discharge to police custody. Likely discharge in 1-2 days.
[2019-08-31] MEDS: LORazepam 0.5 MG TAB PO PRN ×3 (15:34→22:23)
[2019-08-31] MEDS: MIRTAZAPINE 15 MG TAB PO SCH (20:52)
[2019-08-31] MEDS: SERTRALINE 100 MG TAB PO SCH (20:52)
[2019-09-01] MEDS: LORazepam 0.5 MG TAB PO PRN ×2 (06:57→20:36)
[2019-09-01] MEDS: buPROPion 100 MG TAB PO SCH ×2 (08:17→10:46)
--- NOTE | 2019-09-01 10:07 | P.PN ---
Progress Note - Text Progress Note Date: 09/01/19 Interval History: Patient was seen laying down in his bed this morning and was agreeable to speak to telegraphic typewriter repairer in the office. Patient was directable and appeared to have a brighter affect this morning. He states that he declined his Wellbutrin this morning as he feels that it gives him "too much energy" during the day and wanted to fall asleep after breakfast and prefers to have it dosed before lunchtime. Patient claims that his mood has been improving gradually along with his anxiety. He s tates that he only took Ativan twice yesterday and is attempting to cut back on his own over the weekend. Patient also spoke about a sober house in [place] which she heard about yesterday and would like to be set up to leave for their and wants to talk to the social service assistant today regarding discharge planning. He states that he slept better last night. He states that he is attempting to go to some groups during the day and participate and finding them helpful. At this time patient denies any suicidal or homical ideations, intent or plan. Patient denies any auditory, visual hallucinations and denies any paranoia or delusions. Mental Status Exam: General Appearance: Patient appears to be stated age is muscular, attempts to cooperate. Improving hygiene and grooming. Behavior: Patient is sitting in chair, no agitation. Speech: Patient's speech is fluent and nonpressured. Mood/Affect: Mood is "ok" and admits to improving anxiety, affect is congruent Suicidality/Homicidality: Patient denies having any suicidal or homicidal ideation intent or plan. Perceptions: Patient denies any auditory or visual hallucinations. Though content/process: There is no evidence of any delusional thought content and thought process is linear and goal-directed. Memory and concentration: AOX3, grossly intact for the purposes of this session Judgment and insight: mildly improving, superficial. Assessment Major depressive disorder, recurrent Opiate use disorder, currently in withdrawal Anxiety disorder unspecified Nicotine dependence Plan: -Patient continues to meet criteria for inpatient psychiatric admission for symptom stabilization and safety. Patient has signed adult voluntary form and medication consent and was placed in patient's chart. -Medications: Continue with Zoloft 100 mg daily for mood/anxiety. Continue with Remeron 15 mg daily at bedtime for insomnia/mood. Changed Wellbutrin to 100 mg at noon for mood adjunct along with treatment of sexual side effects from SSRIs. PRN medications for opiate withdrawal including clonidine, ibuprofen, loperamide, Zofran and added dicyclomine for stomach cramping. -Will decrease Ativan to 0.5 mg two times a day when necessary for anxiety with the plan to taper off. -NRT - nicotine patch -SW on board for discharge planning. Unit staff Received a request by police department to surrender patient upon discharge to police custody. Likely discharge early next week.
[2019-09-01] MEDS: cloNIDine HCL 0.1 MG TAB PO PRN (20:36)
[2019-09-01] MEDS: SERTRALINE 100 MG TAB PO SCH (20:36)
[2019-09-01] MEDS: hydrOXYzine PAMOATE 25 MG CAP PO PRN (20:36)
[2019-09-01] MEDS: MIRTAZAPINE 15 MG TAB PO SCH (20:42)
[2019-09-02] MEDS: LORazepam 0.5 MG TAB PO PRN (10:00)
[2019-09-02] MEDS: buPROPion 100 MG TAB PO SCH (11:05)
--- NOTE | 2019-09-02 13:38 | P.PN ---
Progress Note - Text Progress Note Date: 09/02/19 This is a psychiatric progress note as a cross coverage for Dr. Varela Chief complaint: "I feel very good today " Subjective: The patient has been seen today as follow-up, chart reviewed, case discussed with the treatment team. Patient slept about 6 hours last night. Patient has been going to groups and other unit activities. Patient reports fair appetite. She reports feeling stable emotionally and he denies feeling depressed, hopeless, or suicidal. He denies any severe mood swings, irritability, or homicidal ideation. The patient is compliant with his medications and denies any adverse reactions. The patient denies any manic symptoms including sustained period of time with elevated or irritable mood, impulsive or irrational behavior, inflated self-esteem, or absence need to sleep due to increases goal- directed activities. The patient denies any auditory or visual hallucinations. Also the patient denies any paranoid ideation. Objective: Vitals has been reviewed. Mental status examination; Appearance: The patient appears stated age, adequately groomed and dressed, no specific features. Gait/posture: Normal gait, Normal arm swinging: No abnormal movements. Attitude and behavior: engaged, cooperative, eye contact. Motor activity: Normal psychomotor activity Speech: Normal rate, tone. Mood: Anxious Affect: Constricted Thought form: goal-directed, linear, coherent. Thought content: Non-delusional, denies suicidal thoughts, denies homicidal thoughts, denies intentions or plans. Perception: Denies any auditory or visual hallucinations Attention: No impairment. Patient was able to repeat serial 5. Orientation: Patient patient was fully oriented to time place person and situation. Insight: Patient has fair insight about his psychiatric disorder. Judgment: Patient has fair judgment about his psychiatric treatment. Assessment: Major depressive disorder, recurrent Opioid use disorder, severe. Opioid withdrawal, resolved. Anxiety disorder unspecified Nicotine dependence Plan: Continue inpatient level of care for further stabilization on medications Continue treatment of depressive disorder, and substance use disorder Precautions: Continue 15 minutes check for safety. Consider medical consultation if any acute medical issues arise. Provide the patient individual, group therapy, substance use disorder counseling to give better insight and learn coping skills. Medications: Continue Zoloft 100 mg daily for depression and anxiety symptoms. Continue Remeron 15 mg at bedtime for depression and anxiety and to help with insomnia. Continue monitor for opioid withdrawal symptoms , and use when necessary clonidine/Zofran for severe symptoms. Discharge patient to OUTPATIENT services upon a stabilization
[2019-09-02] MEDS: SERTRALINE 100 MG TAB PO SCH (20:33)
[2019-09-02] MEDS: MIRTAZAPINE 15 MG TAB PO SCH (20:33)
--- NOTE | 2019-09-03 10:50 | P.PN ---
Progress Note - Text Progress Note Date: 09/03/19 This is a psychiatric progress note as a cross coverage for Dr. Varela Chief complaint: "I feel ready to go home " Subjective: The patient has been seen today as follow-up, chart reviewed, case discussed with the treatment team. Patient slept about 7 hours last night. Patient continued to go to groups and other unit activities. Patient reports good appetite. Patient denies feeling depressed, hopeless, or suicidal. He continued to report feeling stable emotionally and feels ready for discharge tomorrow which has been discussed with him by his primary psychiatrist. Patient reports after discharge plan to go [facility] and continue substance use disorder treatment. The patient is compliant with his medications and denies any adverse reactions. He denies any severe mood swings, irritability, or homicidal ideation. Patient denies any manic or psychotic symptoms. Patient denies any opioid withdrawal symptoms. Objective: Vitals has been reviewed. Mental status examination; Appearance: The patient appears stated age, adequately groomed and dressed, no specific features. Gait/posture: Normal gait, Normal arm swinging: No abnormal movements. Attitude and behavior: engaged, cooperative, eye contact. Motor activity: Normal psychomotor activity Speech: Normal rate, tone. Mood: "Good" Affect: Constricted Thought form: goal-directed, linear, coherent. Thought content: Non-delusional, denies suicidal thoughts, denies homicidal thoughts, denies intentions or plans. Perception: Denies any auditory or visual hallucinations Attention: No impairment. Patient was able to repeat serial 5. Orientation: Patient patient was fully oriented to time place person and situation. Insight: Patient has fair insight about his psychiatric disorder. Judgment: Patient has fair judgment about his psychiatric treatment. Assessment: Major depressive disorder, recurrent Opioid use disorder, severe. Opioid withdrawal, resolved. Anxiety disorder unspecified Nicotine dependence Plan: Continue inpatient level of care for further stabilization on medications Continue treatment of depressive disorder, and substance use disorder Precautions: Continue 15 minutes check for safety. Consider medical consultation if any acute medical issues arise. Provide the patient individual, group therapy, substance use disorder counseling to give better insight and learn coping skills. Medications: Continue Zoloft 100 mg daily for depression and anxiety symptoms. Continue Remeron 15 mg at bedtime for depression and anxiety and to help with insomnia. Discharge patient to OUTPATIENT services upon a stabilization
[2019-09-03] MEDS: buPROPion 100 MG TAB PO SCH (12:11)
[2019-09-03 14:04] LABS: Appearance,Urine Clear (Clear); Bilirubin,Urine Negative (Negative); Blood,Urine Negative (Negative); Color,Urine Yellow; Glucose,Urine (UA) Negative (Negative); Ketones,Urine Negative (Negative); Leukocyte Esterase,Urine Negative (Negative); Nitrite,Urine Negative (Negative); PH, Urine 6.5 (5.0-8.0); Protein,Urine Negative (Negative); Specific Gravity,Urine 1.021 (1.001-1.035); Urobilinogen,Urine <2.0 mg/dL (<2.0)
[2019-09-03 14:20] LABS: Amphetamine Screen,Urine Not Detected (NotDetected); Barbiturate Screen,Urine Not Detected (NotDetected); Benzodiazepines Screen,Urine Detected (NotDetected); Cocaine Screen,Urine Not Detected (NotDetected); Methadone Screen, Urine Not Detected (NotDetected); Opiate Screen,Urine Not Detected (NotDetected); Oxycodone Screen, Urine Not Detected (NotDetected); Phencyclidine Screen,Urine Not Detected (NotDetected); Tricyclic Antidepressant,Urine Not Detected (NotDetected); Urn Cannabinoid Scrn Not Detected (NotDetected)
[2019-09-03] MEDS: SERTRALINE 100 MG TAB PO SCH (20:07)
[2019-09-03] MEDS: MIRTAZAPINE 15 MG TAB PO SCH (20:07)
[2019-09-03] MEDS: hydrOXYzine PAMOATE 25 MG CAP PO PRN (20:08)
[2019-09-03] MEDS: cloNIDine HCL 0.1 MG TAB PO PRN (22:56)
[2019-09-04 06:42] VITALS: BP 106/51; PULSE 56; RESP 18; TEMP 98.5
--- NOTE | 2019-09-04 09:42 | P.DS ---
Providers Date of admission: 08/26/19 16:50 Expected date of discharge: 09/04/19 Attending physician: Sumanth Varela MD Consults: 08/26/19 16:54 Consult Physician Routine Consulting Provider: Shauna Christensen Consult Reason/Comments: medical management Do you want consulting provider notified?: Already Contacted Primary care physician: Stated None - Discharge Diagnosis(es) (1) Major depressive disorder, recurrent episode Current Visit: Yes Status: Acute Priority: High (2) Opioid use disorder Current Visit: Yes Status: Acute Priority: Medium (3) Anxiety disorder Current Visit: Yes Status: Acute Priority: Medium Hospital Course: Admission HPI: Admission note completed by Dr. Capone "Myriam Andrade is a 38 year old single male patient. Patient admitted to the inpatient psychiatric unit [facility] on involuntary basis with depression and thoughts of suicide. Patient states that he started feeling suicidal a few days ago. He came into the hospital on his own. He relays that somebody called him and he told him how he was feeling and they told him back to the hospital. He states he was having thoughts of wanting to hang himself from the garage. He admits that his mood is been depressed daily for months. Had a recent hospit alization here couple of weeks ago and was feeling better but then he seemed to go down again. He has been consistent with taking of Zoloft." Hospital course: Upon admission to the unit patient was initially depressed, anxious and having suicidal ideations. Patient was however directable and agreeable to commence treatment. Patient got along well with other patients on the unit and followed unit protocol. Patient was compliant with the medications and denied any side effects throughout hospital course. Patient was initially noted to be going through severe opioid withdrawal as he relapsed on heroin. Patient was given PRN medications for opiate withdrawal including clonidine, ibuprofen, paranoid, Zofran, dicyclomine and Ativan for anxiety when necessary. Patient was started on back on Zoloft 100 mg daily for mood/anxiety. Patient was also started on Remeron and titrated up to 30 mg nightly for mood/insomnia. Patient was also started on Wellbutrin and titrated up to 100 mg daily as mood adjunct along with treatment of sexual side effects from SSRI. Patient spoke of his stressors and engaged in therapy both group and individual. Patient was also seen by medical team for history and physical exam. Throughout the course of the hospitalization patient gradually improved with regards to mood, anxiety, sleep and became future oriented with improved insight and judgment. Patient also improved regarding his opiate withdrawal symptoms and denied any symptoms prior to discharge. On the day of discharge patient denied any suicidal or homicidal ideations intent or plan denied any auditory or visual hallucinations. Patient endorsed wanting to live for his health and his sobriety. The patient denied any access to guns or weapons. Patient denied any paranoia and did not endorse any delusions. Patient does have a significant history of substance abuse and was counseled on abstaining from all substances including alcohol and marijuana. Patient claimed that he is set to go to a sober house in [facility] upon discharge to work on his sobriety and stay abstinent from recreational drugs. Patient was also counseled on the medications and need for regular compliance and was encouraged to follow-up with their outpatient appointment for mental health and also for primary care. Prior to discharge, patient will be turned over to local police department as requested previously for pending charges. Mental status exam: General Appearance: Patient appears to be stated age is alert, directable and cooperative. Patient is in no acute distress and has fair hygiene and grooming Behavior: Patient is calmly seated without any agitated behavior. Speech: Patient's speech is fluent and nonpressured. Mood/Affect: Patient reports their mood is "better", affect is congruent and euthymic. Suicidality/Homicidality: Patient denies having any suicidal or homicidal ideation intent or plan. Perceptions: Patient denies any auditory or visual hallucinations. Though content/process: There is no evidence of any delusional thought content and thought process is linear and goal-directed. Memory and concentration: AOX3, grossly intact for the purposes of this session. Can spell "WORLD" backwards correctly. Judgment and insight: fair, improved Impression: Major depressive disorder, recurrent episode Anxiety disorder unspecified Opiate use disorder Nicotine dependence Plan: -Continue with discharge today as patient has improved and stabilized psychiatrically and is not currently an imminent threat to himself and/or others. -Continue medications: Patient to continue on Zoloft 100 mg daily for mood/anxiety, Wellbutrin 100 mg daily as mood adjunct and treatment of sexual side effects from SSRI. Continue the Remeron 30 mg nightly for insomnia/mood. Patient was weaned off of Ativan PRN. Patient requested to have his PRN opiate withdrawal medications discontinued. -Patient was counseled on the need for medication compliance and appropriate follow-up at mental health and also primary care for medical issues. Patient verbalized understanding and agreed. -Social work to arrange for Police to pick patient up into their custody from Hospital upon discharge. Social work also to arrange for patients follow up appointments for psychiatric care along with follow up with primary care provider. -Patient counseled on abstaining from recreational drugs and marijuana and alcohol. Was informed/educated on the adverse effects on their physical and mental health. Patient verbally agreed and understood. Patient claims that he will be going to a sober house in [facility] after discharge to work on his sobriety. -Patient requested not to have nicotine patch or nicotine gum replacement ordered upon discharge. -Patient was instructed to return to the hospital or seek immediate medical care if their psychiatric or medical symptoms do worsen or reoccur. Allergies Allergy/AdvReac Type Severity Reaction Status Date / Time No Known Allergies Allergy Verified 08/26/19 13:57 Laboratory Results Urine Color Yellow 09/03/19 13:40 Urine Appearance Clear (Clear) 09/03/19 13:40 Urine pH 6.5 (5.0-8.0) 09/03/19 13:40 Ur Specific Marble 1.021 (1.001-1.035) 09/03/19 13:40 Urine Protein Negative (Negative) 09/03/19 13:40 Urine Glucose (UA) Negative (Negative) 09/03/19 13:40 Urine Ketones Negative (Negative) 09/03/19 13:40 Urine Blood Negative (Negative) 09/03/19 13:40 Urine Nitrite Negative (Negative) 09/03/19 13:40 Urine Bilirubin Negative (Negative) 09/03/19 13:40 Urine Urobilinogen <2.0 mg/dL (<2.0) 09/03/19 13:40 Ur Leukocyte Esterase Negative (Negative) 09/03/19 13:40 Urine Opiates Screen Not Detected (NotDetected) 09/03/19 13:40 Ur Oxycodone Screen Not Detected (NotDetected) 09/03/19 13:40 Urine Methadone Screen Not Detected (NotDetected) 09/03/19 13:40 Ur Propoxyphene Screen Not Detected (NotDetected) 09/03/19 13:40 Ur Barbiturates Screen Not Detected (NotDetected) 09/03/19 13:40 U Tricyclic Antidepress Not Detected (NotDetected) 09/03/19 13:40 Ur Phencyclidine Scrn Not Detected (NotDetected) 09/03/19 13:40 Ur Amphetamines Screen Not Detected (NotDetected) 09/03/19 13:40 U Methamphetamines Scrn Not Detected (NotDetected) 09/03/19 13:40 U Benzodiazepines Scrn Detected (NotDetected) H 09/03/19 13:40 Urine Cocaine Screen Not Detected (NotDetected) 09/03/19 13:40 U Marijuana (THC) Screen Not Detected (NotDetected) 09/03/19 13:40 Vital Signs Temp 98.5 F 09/04/19 06:41 Pulse 56 L 09/04/19 06:41 Resp 18 09/04/19 06:41 BP 106/51 09/04/19 06:41 Pulse Ox 97 09/04/19 06:41 Intake & Output 09/03/19 09/04/19 09/04/19 18:59 06:59 18:59 Weight 93.6 kg Patient Condition at Discharge: Stable Plan - Discharge Summary Discharge Rx Participant: No New Discharge Prescriptions: New Mirtazapine [Remeron] 30 mg PO HS 28 Days tab buPROPion [Wellbutrin] 100 mg PO DAILY 28 Days tab Continue Sertraline [Zoloft] 100 mg PO HS 28 Days tab Discontinued Vivitrol Injection 1 injection IM QMONTH LORazepam [Ativan] 1 mg PO DAILY PRN #10 tab PRN Reason: Anxiety Melatonin 5 mg PO HS #28 tablet Discharge Medication List Mirtazapine [Remeron] 30 mg PO HS 28 Days tab 09/04/19 [Rx] Sertraline [Zoloft] 100 mg PO HS 28 Days tab 09/04/19 [Rx] buPROPion [Wellbutrin] 100 mg PO DAILY 28 Days tab 09/04/19 [Rx] Follow up Appointment(s)/Referral(s): intake,intake [Other] - 1 Week [facility] castillo [NON-STAFF] - 1 Week Patient Instructions/Handouts: Suicide Prevention (DC) Activity/Diet/Wound Care/Special Instructions: Activity and diet as tolerated. Avoid the use of street drugs and alcohol. Take all medications as prescribed. When you are in need of refills on your medications please contact your medical provider and/or outpatient psychiatrist to have this done. Please go to scheduled outpatient appointment for aftercare treatment. If symptoms return or become worse, call the crisis line at and/or go to the nearest emergency room for evaluation. Discharge Disposition: DC/TRANSFER COURT/LAW
== END 2019-09-04 11:52 | DRG 885 ==
LOC: EC 13:50 → 3MHU 16:50
PROVIDERS: ADMIT Psychiatry & Neurology Psychiatry; ATTEND Psychiatry & Neurology Psychiatry
DX: F33.9 Major depressive disorder, recurrent, unspecified (principal); F11.23 Opioid dependence with withdrawal; R45.851 Suicidal ideations; F41.9 Anxiety disorder, unspecified; F17.210 Nicotine dependence, cigarettes, uncomplicated; G47.00 Insomnia, unspecified; Z79.899 Other long term (current) drug therapy; Z59.0 Homelessness; R11.0 Nausea; Z65.3 Problems related to other legal circumstances
CPT/HCPCS: 80306; 81003; 82075; 99285

== ENCOUNTER 2019-12-07 23:51 | Emergency (ER) | payer OTHER ==
[2019-12-08 00:02] VITALS: BP 115/75; PULSE 73; RESP 18; TEMP 98.3
[2019-12-08] MEDS ORDERED: DEXAMETHASONE SOD PHOSPHATE 10 MG/ML 1 ML VIAL IM STA (00:07)
--- NOTE | 2019-12-08 00:12 | ED ---
Fever HPI - General Chief Complaint: Fever Stated Complaint: Fever Time Seen by Provider: 12/08/19 00:02 Source: patient, RN notes reviewed, old records reviewed Mode of arrival: ambulatory Limitations: no limitations - History of Present Illness Initial Comments: This is a 39-year-old male here for evaluation of cough and congestion fevers body aches pains and sore throat. Patient is a smoker with no medical history takes no medications or recent travel history or sick contacts. Patient has had no prior hospitalizations, no evaluations for cause of fever pain. Denies any rashes mild nausea no vomiting or diarrhea MD Complaint: fever, weakness -: days(s) Temperature Source: subjective Context: sick contacts Associated Symptoms: chills, myalgias, sore throat, cough, nausea Treatments Prior to Arrival: none - Related Data Previous Rx's Medication Instructions Recorded Mirtazapine [Remeron] 30 mg PO HS 28 Days tab 09/04/19 Sertraline [Zoloft] 100 mg PO HS 28 Days tab 09/04/19 buPROPion [Wellbutrin] 100 mg PO DAILY 28 Days tab 09/04/19 Albuterol Sulfate [Proair Hfa] 1 - 2 puff INHALATION Q4H PRN #1 12/08/19 inhaler Azithromycin [Zithromax Z-pack] 0 mg PO DIRECTED #1 pack 12/08/19 Allergies Allergy/AdvReac Type Severity Reaction Status Date / Time No Known Allergies Allergy Verified 12/08/19 00:00 Review of Systems ROS Statement: Those systems with pertinent positive or pertinent negative responses have been documented in the HPI. ROS Other: All systems not noted in ROS Statement are negative. Past Medical History Past Medical History: No Reported History History of Any Multi-Drug Resistant Organisms: None Reported Past Surgical History: Appendectomy Past Psychological History: Depression Smoking Status: Current every day smoker Past Alcohol Use History: None Reported Past Drug Use History: None Reported General Exam Limitations: no limitations General appearance: alert, in no apparent distress Head exam: Present: atraumatic, normocephalic, normal inspection Eye exam: Present: normal appearance, PERRL, EOMI. Absent: scleral icterus, conjunctival injection, periorbital swelling ENT exam: Present: normal exam, mucous membranes moist Neck exam: Present: normal inspection. Absent: tenderness, meningismus, lymphadenopathy Respiratory exam: Present: normal lung sounds bilaterally. Absent: respiratory distress, wheezes, rales, rhonchi, stridor Cardiovascular Exam: Present: regular rate, normal rhythm, normal heart sounds. Absent: systolic murmur, diastolic murmur, rubs, gallop, clicks GI/Abdominal exam: Present: soft, normal bowel sounds. Absent: distended, tend erness, guarding, rebound, rigid Extremities exam: Present: normal inspection, full ROM, normal capillary refill. Absent: tenderness, pedal edema, joint swelling, calf tenderness Back exam: Present: normal inspection Neurological exam: Present: alert, oriented X3, CN II-XII intact Psychiatric exam: Present: normal affect, normal mood Skin exam: Present: warm, dry, intact, normal color. Absent: rash Course Vital Signs 12/08/19 00:00 Temperature 98.3 F Pulse Rate 73 Respiratory 18 Rate Blood Pressure 115/75 O2 Sat by Pulse 94 L Oximetry - Reevaluation(s) Reevaluation #1: 12/08/19 00:12 medical record is reviewed Reevaluation #2: 12/08/19 00:38 Symptoms significantly improved here in the ER Medical Decision Making - Medical Decision Making Please of the male to the evaluation There is no real body aches and pains cough history smoking positive pneumonia on x-ray we'll treat for community-acquired pneumonia patient can be discharged home - Lab Data Lab Results 12/08/19 Range/Units 00:01 Group A Strep Rapid Negative (Negative) - Radiology Data Radiology results: report reviewed (Chest x-ray is positive for pneumonia), image reviewed Disposition Clinical Impression: Community acquired pneumonia Disposition: HOME SELF-CARE Condition: Good Instructions (If sedation given, give patient instructions): Fever in Adults (ED), Bacterial Pneumonia (ED) Prescriptions: Albuterol Sulfate [Proair Hfa] 1 - 2 puff INHALATION Q4H PRN #1 inhaler PRN Reason: Shortness Of Breath Azithromycin [Zithromax Z-pack] 0 mg PO DIRECTED #1 pack Is patient prescribed a controlled substance at d/c from ED?: No Referrals: Nonstaff,Physician [Primary Care Provider] - 1-2 days
--- NOTE | 2019-12-08 00:27 | XR ---
EXAMINATION TYPE: XR chest 2V DATE OF EXAM: 12/08/2019 COMPARISON: 11/28/2018 HISTORY: Cough and congestion TECHNIQUE: FINDINGS: Heart and mediastinum are normal. There is a mild nodular infiltrate lateral aspect left lo wer lobe. The other lung shane are clear. There are no hilar masses. Bony thorax is intact. IMPRESSION: Minimal left lower lobe infiltrate is new compared to old exam. Normal heart.
[2019-12-08] MEDS ORDERED: cefTRIAXone 250 MG VIAL IM STA (00:35)
[2019-12-08] MEDS ORDERED: AZITHROMYCIN 500 MG TAB PO STA (00:35)
[2019-12-08] MEDS ORDERED: IPRATROPIUM-ALBUTEROL 3 ML NEB INHALATION STA (00:36)
[2019-12-08] MEDS: ACETAMINOPHEN TAB 500 MG TAB PO STA ×2 (00:40→00:53)
[2019-12-08] MEDS: IBUPROFEN 800 MG TAB PO STA ×2 (00:40→00:54)
== END 2019-12-08 00:50 | disposition home or self-care (01) ==
LOC: EC 23:51
DX: J18.9 Pneumonia, unspecified organism (principal); R53.1 Weakness; F17.200 Nicotine dependence, unspecified, uncomplicated; Z20.89 Contact with and (suspected) exposure to other communicable diseases; Z53.20 Procedure and treatment not carried out because of patient's decision for unspecified reasons
CPT/HCPCS: 99284; 96372; 87081; 87430; 87502; 71046; J0696